=== PATIENT | female | born 1990 | race Caucasian/White ===

== ENCOUNTER 2021-08-24 18:08 | Emergency (ER) | payer OTHER, SELFPAY ==
--- NOTE | 2021-08-24 18:30 | ED.GENADULT ---
HPI - General Adult General Chief complaint: ETOH/Substance Use Stated complaint: ETOH Time Seen by Provider: 08/24/21 18:13 Source: patient Mode of arrival: ambulatory Limitations: no limitations History of Present Illness HPI narrative: 31-year-old female presents to ED for alcohol intoxication. Patient was called to the hotel room due to her having alcohol drinking binge for the past 3 days. Patient was found on the bed intoxicated. Patient sent to the ED for evaluation. Patient respond to sternal rub. Patient intoxicated. Related Data Allergies Allergy/AdvReac Type Severity Reaction Status Date / Time No Known Allergies Allergy Unverified 10/31/19 19:50 [No Known Allergies*] Review of Systems Review of Systems: Alcohol intoxication Yes all other systems are reviewed and are negative PMFSH Social History Social History Advance Directives: No Advance Directives Information Provided: No Physical Exam ED Vital Signs: Vital Signs - 24 hr 08/24/21 18:46 08/24/21 19:25 Temperature 96.7 F L Pulse Rate 80 86 Respiratory Rate 16 14 Blood Pressure 107/60 104/60 Pulse Oximetry 96 98 Oxygen Delivery Method Room Air Room Air BMI result Body Mass Index 24.8 Const Other: intoxicated [facility] Head: Yes normal to inspection, Yes No palpable skull fracture present, Yes normocephalic, Yes atraumatic and No abrasion Ears: hearing grossly normal bilaterally, external ears normal, TM's normal bilaterally, TM normal on the right, TM normal on the left, EAC's normal, mastoids normal and no periauricular adenopathy Eyes Other: equal pupils General: appearance normal, both eyes and all related structures Neck Neck: Yes normal visual inspection, Yes full ROM, Yes no lymphadenopathy, Yes trachea midline, Yes supple, No anterior neck swelling and No tender Chest Chest palpation & inspection: normal inspection of the chest and normal palpation of entire chest wall Resp Effort & Inspection: normal respiratory effort and able to speak in complete sentences Auscultation: clear to auscultation bilaterally Cardio Jugular venous distension: no JVD Heart sounds: S1 normal heart sound present and S2 normal heart sound present GI Inspection: Yes normal to inspection and No abdominal wall ecchymosis Palpation (GI): Soft to palpation, not firm, nontender, no guarding and not rigid General: No CVA tenderness and Yes no CVA tenderness Back/Spine/Pelvis Back: no CVA tenderness, No CVA tenderness, No ecchymosis and No back tenderness Skin General skin exam: no rashes or lesions noted and elasticity normal Neuro Other: alcohol on breath. Extrem General: Yes normal to inspection and Yes full ROM Psych Appearance: grossly normal, well kempt and not disheveled Course Course Course Narrative: Patient have labs drawn. Present [address] scan. No signs of head trauma. Will re-evaluate when sober Reevaluation(s) Reevaluation #1: spoke with patient's mother Sameera Gonzalez and Girlfriend Sujatha who informed me that patient just completed court mandated rehab for substance abuse. I spoke with patient and she refused to receive detox/ rehab information from myself. technology coach Myah spoke with patient and patient states she will follow-up with her rehab clinician in [facility] to continue her treatment. I spoke with care team alice Clemens who states once patient completes treatment section 35 no longer exists. Spoke with patient's mother and girlfriend and informed them that they will need to petition a new section 35 and they agree with plan. Patient alert oriented x3 and ready for discharge. Patient is not suicidal or homicidal. No need for Section 12. Girlfriend sujatha informed patient is being discharged and she states he would go to patient's home to check up on her. Time: 21:19 Medical Decision Making MDM Narrative Medical decision making narrative: alcohol/substance abuse Lab Data Result diagrams: 08/24/21 19:48 08/24/21 19:48 Labs: Lab Results 08/24/21 08/24/21 08/24/21 Range/Units 19:48 19:48 20:04 WBC 5.8 (4.8-10.8) X10*3/uL RBC 4.51 (4.20-5.50) X10*6/uL Hgb 13.8 (12.0-16.0) g/dl Hct 40.3 (37.0-47.0) % MCV 89.4 (80.0-98.0) fL MCH 30.6 (27.0-33.0) pg MCHC 34.2 (31.0-35.0) g/dl RDW 12.7 (11.0-16.0) % Plt Count 260 (160-400) X10*3/uL MPV 8.6 L (9.4-12.3) fL Immature Gran % (Auto) 0.3 (0.0-0.4) % Neut % (Auto) 87.2 H (45-73) % Lymph % (Auto) 10.2 L (20-40) % [place] % (Auto) 2.1 (2-11) % Eos % (Auto) 0.0 (0-4) % Baso % (Auto) 0.2 (0-2) % Lymph # (Auto) 0.6 L (1.2-4.9) X10*3/uL [place] # (Auto) 0.1 (0.1-1.2) X10*3/uL Eos # (Auto) 0.0 (0.0-0.4) X10*3/uL Baso # (Auto) 0.0 (0.0-0.2) X10*3/uL Abs Immat Gran (auto) 0.02 (0.00-0.03) X10*3/uL Absolute Neuts (auto) 5.1 (2.0-8.3) x10*3/uL Absolute Nucleated RBC 0.000 (0.0-0.012) X10*3/uL Nucleated RBC % (auto) 0.0 (0.0-0.2) /100WBC Sodium 141 (135-145) mmol/L Potassium 4.3 (3.3-5.1) mmol/L Chloride 102 (96-108) mmol/L Carbon Dioxide 27 (22-29) mmol/L Anion Gap 16 (12-20) BUN 7 L (9-16) mg/dL Creatinine 0.78 (0.5-1.4) mg/dL Estim Creat Clear Calc 101.6 Estimated GFR > 60 Random Glucose 100 (60-115) mg/dL Calcium 8.7 (8.4-10.2) mg/dL Magnesium 1.6 (1.6-2.6) mg/dL Total Bilirubin 0.2 (0.0-1.0) mg/dL AST 47 H (5-31) U/L ALT 27 (0-31) U/L Alkaline Phosphatase 59 (39-117) U/L Total Protein 7.5 (6.5-8.0) g/dL Albumin 4.2 (3.5-5.0) g/dL Urine Color YELLOW Urine Appearance CLEAR Urine pH 5.5 (5.0-8.0) Ur Specific [place] >= 1.030 H (1.005-1.025) Urine Protein NEG (NEG-TRACE) MG/DL Urine Glucose (UA) NEG (NEG) MG/DL Urine Ketones 5 (NEG) MG/DL Urine Blood NEG (NEG) Urine Nitrite NEG (NEG) Ur Leukocyte Esterase NEG (NEG) Urine Test (NEGATIVE) Urine Opiates Screen (Not Detect) Urine Fentanyl Screen (Not Detect) Ur Barbiturates Screen (Not Detect) Ur Phencyclidine Scrn (Not Detect) Ur Amphetamines Screen (Not Detect) U Benzodiazepines Scrn (Not Detect) Urine Cocaine Screen (Not Detect) U Marijuana (THC) Screen (Not Detect) Ethyl Alcohol 127 mg/dL 08/24/21 08/24/21 Range/Units 20:04 20:04 WBC (4.8-10.8) X10*3/uL RBC (4.20-5.50) X10*6/uL Hgb (12.0-16.0) g/dl Hct (37.0-47.0) % MCV (80.0-98.0) fL MCH (27.0-33.0) pg MCHC (31.0-35.0) g/dl RDW (11.0-16.0) % Plt Count (160-400) X10*3/uL MPV (9.4-12.3) fL Immature Gran % (Auto) (0.0-0.4) % Neut % (Auto) (45-73) % Lymph % (Auto) (20-40) % [place] % (Auto) (2-11) % Eos % (Auto) (0-4) % Baso % (Auto) (0-2) % Lymph # (Auto) (1.2-4.9) X10*3/uL [place] # (Auto) (0.1-1.2) X10*3/uL Eos # (Auto) (0.0-0.4) X10*3/uL Baso # (Auto) (0.0-0.2) X10*3/uL Abs Immat Gran (auto) (0.00-0.03) X10*3/uL Absolute Neuts (auto) (2.0-8.3) x10*3/uL Absolute Nucleated RBC (0.0-0.012) X10*3/uL Nucleated RBC % (auto) (0.0-0.2) /100WBC Sodium (135-145) mmol/L Potassium (3.3-5.1) mmol/L Chloride (96-108) mmol/L Carbon Dioxide (22-29) mmol/L Anion Gap (12-20) BUN (9-16) mg/dL Creatinine (0.5-1.4) mg/dL Estim Creat Clear Calc Estimated GFR Random Glucose (60-115) mg/dL Calcium (8.4-10.2) mg/dL Magnesium (1.6-2.6) mg/dL Total Bilirubin (0.0-1.0) mg/dL AST (5-31) U/L ALT (0-31) U/L Alkaline Phosphatase (39-117) U/L Total Protein (6.5-8.0) g/dL Albumin (3.5-5.0) g/dL Urine Color Urine Appearance Urine pH (5.0-8.0) Ur Specific [place] (1.005-1.025) Urine Protein (NEG-TRACE) MG/DL Urine Glucose (UA) (NEG) MG/DL Urine Ketones (NEG) MG/DL Urine Blood (NEG) Urine Nitrite (NEG) Ur Leukocyte Esterase (NEG) Urine Test NEGATIVE (NEGATIVE) Urine Opiates Screen Not Detected (Not Detect) Urine Fentanyl Screen Not Detected (Not Detect) Ur Barbiturates Screen Not Detected (Not Detect) Ur Phencyclidine Scrn Not Detected (Not Detect) Ur Amphetamines Screen Not Detected (Not Detect) U Benzodiazepines Scrn POSITIVE H (Not Detect) Urine Cocaine Screen Not Detected (Not Detect) U Marijuana (THC) Screen POSITIVE H (Not Detect) Ethyl Alcohol mg/dL Discharge Plan Discharge Clinical Impression: Alcohol abuse, Substance abuse Patient Disposition: Home, Self-Care Instructions: Abuse of Alcohol (ED), Polysubstance Abuse (ED) Additional Instructions: Please follow-up with the clinician Charis to restart your rehab in [facility]. Return to the ED immediately for any suicidal / homicidal ideation, auditory / visual hallucinations, any physical complaints, or any other concerning symptoms. Discharge Date/Time: 08/24/21 21:33 Print Language: German
[2021-08-24 18:46] VITALS: BP 107/60; BP 117/80; PULSE 80; PULSE 90; RESP 16; O2SAT 96; O2SAT 98; BMI 24.8
[2021-08-24 19:25] VITALS: BP 104/60; PULSE 86; RESP 14; TEMP 35.9; O2SAT 98
--- NOTE | 2021-08-24 19:41 | PC.NURSE ---
pt sleeping arrousable, labs being drawn at this time. pt has a mild nausea no vomiting. ivf infusing. skin pink warm and dry.
[2021-08-24] MEDS: 0.9 % Sodium Chloride 1,000 ML 999 ML IV ×2 (19:44)
--- NOTE | 2021-08-24 19:50 | PC.NURSE ---
pt sat at 97% on room air, pt is weak, nailbeds dusky due to pt has rynalds. pt states this is her baseline color to her fingers and nails.
[2021-08-24 19:52] LABS: MANUAL DIFF FLAG NO
[2021-08-24 19:53] LABS: Basophils Percent Auto 0.2 % (0-2); Hematocrit 40.3 % (37.0-47.0); Hemoglobin 13.8 g/dl (12.0-16.0); Imm Gran Abs Auto 0.02 X10*3/uL (0.00-0.03); Imm Gran Pct Auto 0.3 % (0.0-0.4); Lymphocytes Absolute Auto 0.6 X10*3/uL (1.2-4.9); Lymphocytes Percent Auto 10.2 % (20-40); Mean Corpuscular HGB Conc 34.2 g/dl (31.0-35.0); Mean Corpuscular Hemoglobin 30.6 pg (27.0-33.0); Mean Corpuscular Volume 89.4 fL (80.0-98.0); Mean Platelet Volume 8.6 fL (9.4-12.3); Monocytes Absolute Auto 0.1 X10*3/uL (0.1-1.2); Monocytes Percent Auto 2.1 % (2-11); Neutrophils Absolute Auto 5.1 x10*3/uL (2.0-8.3); Neutrophils Percent Auto 87.2 % (45-73); Platelet Count 260 X10*3/uL (160-400); Red Blood Count 4.51 X10*6/uL (4.20-5.50); Red Cell Distribution Width 12.7 % (11.0-16.0); White Blood Count 5.8 X10*3/uL (4.8-10.8)
[2021-08-24 20:11] LABS: Appearance Urine CLEAR; Color Urine YELLOW; Glucose Urine UA NEG (NEG); Leukocyte Esterase Urine NEG (NEG); Nitrite Urine NEG (NEG); PH 5.5 (5.0-8.0); Specific Gravity - Urine >= 1.030 (1.005-1.025); Urine Blood NEG (NEG); Urine Ketones 5 MG/DL (NEG); Urine Protein NEG (NEG-TRACE)
[2021-08-24 20:14] LABS: UPreg QC Valid YES; Urine Pregnancy NEGATIVE (NEGATIVE)
[2021-08-24 20:17] LABS: Alanine Aminotransferase 27 U/L (0-31); Albumin Level 4.2 g/dL (3.5-5.0); Alkaline Phosphatase 59 U/L (39-117); Anion Gap 16 (12-20); Aspartate Amino Transferase 47 U/L (5-31); Bilirubin Total 0.2 mg/dL (0.0-1.0); Blood Urea Nitrogen 7 mg/dL (9-16); Calcium 8.7 mg/dL (8.4-10.2); Carbon Dioxide 27 mmol/L (22-29); Chloride 102 mmol/L (96-108); Creatinine Clr Calc Pharmacy 101.6; Estimated Glomerular Filt Rate > 60; Ethanol 127 mg/dL; Glucose Random 100 mg/dL (60-115); Magnesium 1.6 mg/dL (1.6-2.6); Potassium 4.3 mmol/L (3.3-5.1); Sodium 141 mmol/L (135-145); Total Protein 7.5 g/dL (6.5-8.0)
[2021-08-24 20:23] LABS: Amphetamine Screen Urine Not Detected (Not Detect); Barbiturates, Urine Not Detected (Not Detect); Benzodiazepines Screen Urine POSITIVE (Not Detect); Cannabinoid Screen Urine POSITIVE (Not Detect); Cocaine Screen Urine Not Detected (Not Detect); Fentanyl, urine Not Detected (Not Detect); Opiate Screen Urine Not Detected (Not Detect); Phencyclidine Screen Urine Not Detected (Not Detect)
--- NOTE | 2021-08-24 20:48 | PC.NURSE ---
pt is on her cell phone calling for a ride home. pt crying and using the f word to the person on the other end.
--- NOTE | 2021-08-24 21:04 | PC.NURSE ---
pt meeting with debt recovery officer at this time. pt was crying prior while she was on the phone.
--- NOTE | 2021-08-24 21:19 | MHC.RECOVSUP ---
? Reason for consult:Recovery Support o Current location: ED22H? o Identified substance use concern: AUD? - Support ? Intervention: o Harm reduction discussion ? Additional information:?Patient consultation with JUAN DAVID Lozoya before point of entry. 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 Patient did disclose that she will section 35 herself along with her clinician from [place], [place] tomorrow and doesn't want any assistance with resources. I handed her my business card in case patient changes her mind. Patient wanted to be discharged to return to her motel room in [place].
--- NOTE | 2021-08-24 21:30 | PC.NURSE ---
pt a&o, no sob or chest pain. Care team did speak with pt regarding plan . Reviewed discharge plan with pt. pt verbalized understanding. Pt belonging returned at this charge.
--- NOTE | 2021-08-24 21:32 | PC.NURSE ---
Notified HARPER Alexis of discharge.
== END 2021-08-24 21:33 | disposition home or self-care (01) ==
PROVIDERS: Physician Assistant; Emergency Provider Internal Medicine
DX: F10.129 Alcohol abuse with intoxication, unspecified (principal); Y90.6 Blood alcohol level of 120-199 mg/100 ml; F12.90 Cannabis use, unspecified, uncomplicated; Z79.899 Other long term (current) drug therapy
CPT/HCPCS: 36415; 80053; 80307; 81003; 81025; 82077; 83735; 85025; 96360; 99284

== ENCOUNTER 2022-10-26 11:18 | Emergency (ER) | payer OTHER, SELFPAY ==
--- NOTE | ~2022-10-26 | XR_ITS ---
EXAMINATION: XR ELBOW, RIGHT CLINICAL INFORMATION: Rule out foreign body COMPARISON: None available. TECHNIQUE: AP, lateral, and oblique views of the right elbow. FINDINGS: The bones and soft tissues are normal. No fracture or joint effusion. Alignment is anatomic. Joint spaces are maintained. There is a 7 mm metallic foreign body consistent with a needle tip in the anterolateral soft tissues. XR/XR elbow RT min 3V IMPRESSION: 1. No acute fracture or subluxation. 2. Radiopaque needle fragment in the anterolateral soft tissues.
[2022-10-26 11:30] VITALS: BP 115/73; PULSE 75; RESP 19; TEMP 36.6; O2SAT 98; BMI 20.6
--- NOTE | 2022-10-26 11:31 | ECG_ITS ---
Test Reason : pain Blood Pressure : / mmHG Vent. Rate : 080 BPM Atrial Rate : 080 BPM P-R Int : 150 ms QRS Dur : 076 ms QT Int : 392 ms P-R-T Axes : 054 040 030 degrees QTc Int : 452 ms Normal sinus rhythm Normal ECG No previous ECGs available Referred By: Calvin Cardenas Electronically Signed By:MONI TEE
--- NOTE | 2022-10-26 11:34 | ED.GENADULT ---
HPI - General Adult General Chief complaint: Arrhythmia/Palpitations Stated complaint: Abnormal heart rate Time Seen by Provider: 10/26/22 14:02 Source: patient Mode of arrival: ambulatory Limitations: no limitations History of Present Illness HPI narrative: Pain history of substance abuse alcohol abuse clean for last 2 months was at the methadone clinic notice a pulse slightly irregular. Patient just had physical yesterday everything was normal. Patient denied any syncope dizziness chest pain feels slight short of breath when ambulating no leg swelling no fever no cough no chills no history of caffeine use patient also has a broken needle in right forearm for last 1 yr no skin discoloration or significant pain Related Data Previous Rx's Medication Instructions Recorded cefuroxime axetil 250 mg tablet 250 mg PO BID 7 days #14 tabs 10/26/22 Allergies Allergy/AdvReac Type Severity Reaction Status Date / Time No Known Allergies Allergy Verified 10/26/22 11:29 [No Known Allergies*] Review of Systems Review of Systems: Yes all other systems are reviewed and are negative [facility] Past Medical History Medical History Marfan's disease Social History Social History Alcohol intake: never Smoked in Last 30 Days: Yes Use of substances other than those prescribed or required for medical reasons: Yes Substance Use Type: Marijuana Advance Directives: No Advance Directives Information Provided: Yes Patient : No Physical Exam ED Vital Signs: Vital Signs - 24 hr 10/26/22 11:30 10/26/22 12:20 10/26/22 14:38 Temperature 98 F 97.9 F 97.5 F Pulse Rate 75 64 57 Respiratory Rate 19 14 14 Blood Pressure 115/73 103/70 106/66 Pulse Oximetry 98 97 99 Oxygen Delivery Method Room Air Room Air Room Air 10/26/22 15:13 10/26/22 15:14 10/26/22 15:16 Temperature Pulse Rate 53 66 68 Respiratory Rate Blood Pressure 100/60 106/70 99/67 Pulse Oximetry Oxygen Delivery Method BMI result Body Mass Index 20.6 Appearance: Alert. Oriented X3. No acute distress. Eyes: PERRLA, No Nystagmus ENT: Pharynx normal. Oral Mucosa moist Neck: Normal inspection. Neck supple. CVS: Normal heart rate and rhythm. Pulses normal sinus arrhythmia with heart rate fluctuating between 50- 75. Respiratory: No respiratory distress. Equal air entry bilateral, no wheezing/rales/rhonchi Abdomen: Soft and nontender. Bowel sounds are present, no mass palpable, no CVA tenderness Skin: Skin warm and dry. Normal skin color. Normal skin turgor. Extremities: No lower extremity edema. No calf tenderness Neuro: Oriented X 3. No motor deficit. No sensory deficit.No cerebellar signs , cranial nerves II-XII intact Course Course Course Narrative: RME- and deformity 2-year-old female presents for evaluation of ?shortness of breath and they told me at the methadone clinic that is my heart rate was skipping beats. ? She also reports that she has a needle in her right elbow which is not acute but she would like it evaluated. plan for labs, EKG. Patient is PERC negative Medications Administered Discontinued Medications Generic Name Dose Route Start Last Admin Trade Name Freq PRN Reason Stop Dose Admin Cefuroxime Axetil 250 mg 10/26/22 14:52 10/26/22 15:01 Cefuroxime Axetil 250 Mg Tablet PO 10/26/22 14:53 250 mg ONCE ONE Administration Medical Decision Making Medical Decision Making [facility] Narrative: Patient labs are stable stenciler showed sinus rhythm with PACs/sinus arrhythmia urine showed wbc's and bacteria patient does have splints and odor in the urine will prescribe Ceftin discharge patient home advised to drink plenty of fluids and avoid caffeinated drinks Lab Data [facility] Lab Attestation statement: I reviewed the patient's lab results. 10/26/22 11:56 10/26/22 11:56 Labs: Lab Results 10/26/22 10/26/22 Range/Units 11:49 11:56 WBC 6.3 (4.8-10.8) X10*3/uL RBC 5.07 (4.20-5.50) X10*6/uL Hgb 15.6 (12.0-16.0) g/dl Hct 45.0 (37.0-47.0) % MCV 88.8 (80.0-98.0) fL MCH 30.8 (27.0-33.0) pg MCHC 34.7 (31.0-35.0) g/dl RDW 12.5 (11.0-16.0) % Plt Count 201 (160-400) X10*3/uL MPV 10.6 (9.4-12.3) fL Immature Gran % (Auto) 0.3 (0.0-0.4) % Neut % (Auto) 60.8 (45-73) % Lymph % (Auto) 31.4 (20-40) % [place] % (Auto) 4.9 (2-11) % Eos % (Auto) 2.1 (0-4) % Baso % (Auto) 0.5 (0-2) % Lymph # (Auto) 2.0 (1.2-4.9) X10*3/uL [place] # (Auto) 0.3 (0.1-1.2) X10*3/uL Eos # (Auto) 0.1 (0.0-0.4) X10*3/uL Baso # (Auto) 0.0 (0.0-0.2) X10*3/uL Abs Immat Gran (auto) 0.02 (0.00-0.03) X10*3/uL Absolute Neuts (auto) 3.8 (2.0-8.3) x10*3/uL Absolute Nucleated RBC 0.000 (0.0-0.012) X10*3/uL Nucleated RBC % (auto) 0.0 (0.0-0.2) /100WBC PT 12.1 (11.1-13.3) SEC INR 1.0 (0.9-1.1) Sodium 137 (135-145) mmol/L Potassium 4.7 (3.3-5.1) mmol/L Chloride 107 (96-108) mmol/L Carbon Dioxide 24 (22-29) mmol/L Anion Gap 11 L (12-20) BUN 15 (9-16) mg/dL Creatinine 1.08 (0.5-1.4) mg/dL Estim Creat Clear Calc 83.8 Estimated GFR 59 Random Glucose 85 (60-115) mg/dL Calcium 9.3 D (8.4-10.2) mg/dL Magnesium 1.9 (1.6-2.6) mg/dL Total Bilirubin 0.3 (0.0-1.0) mg/dL AST 66 H (5-31) U/L ALT 76 H (0-31) U/L Alkaline Phosphatase 66 (39-117) U/L Total Protein 8.3 H (6.5-8.0) g/dL Albumin 4.4 (3.5-5.0) g/dL Lipase 21 (8-78) U/L TSH 0.67 (0.32-4.0) uIU/mL Urine Color Yellow Urine Appearance Clear Urine pH 5.5 (5.0-9.0) Ur Specific [place] 1.025 (1.005-1.025) Urine Protein Negative (Neg-Trace) mg/dL Urine Glucose (UA) Negative (Negative) mg/dL Urine Ketones Negative (Negative) mg/dL Urine Blood Negative (Negative) Urine Nitrite Negative (Negative) Ur Leukocyte Esterase Small (1+) H (Negative) Urine RBC 0-2 (0-2) /HPF Urine WBC 6-10 H (0-5) /HPF Ur Squamous Epith Cells 6-10 (0-2) /HPF Urine Bacteria 2+ (None Seen) Hyaline Casts 0-2 (0-2) /LPF Urine Test NEGATIVE (NEGATIVE) Independent Interpretation I performed an independent interpretation of an: EKG Interpretation: Normal sinus rhythm heart rate 80 beats per minute normal intervals normal axis no acute ST-T changes no acute ischemia Discharge Plan Discharge Clinical Impression: Sinus arrhythmia, UTI (urinary tract infection) Patient Disposition: Home, Self-Care Instructions: Urinary Tract Infection in Women (DC), Premature Atrial Contractions (ED) Additional Instructions: Your irregular heartbeats is not very uncommon, and non life-threatening drink plenty of fluids avoid caffeinated drink Take antibiotic for UTI Prescriptions: New cefuroxime axetil 250 mg tablet 250 mg PO BID 7 Days Qty: 14 0RF
[2022-10-26 12:05] LABS: MANUAL DIFF FLAG NO
[2022-10-26 12:08] LABS: UPreg QC Valid YES; Urine Pregnancy NEGATIVE (NEGATIVE)
[2022-10-26 12:09] LABS: Appearance Urine Clear; Color Urine Yellow; Glucose Urine UA Negative (Negative); Leukocyte Esterase Urine Small (1+) (Negative); Nitrite Urine Negative (Negative); PH 5.5 (5.0-9.0); Specific Gravity - Urine 1.025 (1.005-1.025); UMIC TRIGGER UACC YES; Urine Blood Negative (Negative); Urine Ketones Negative (Negative); Urine Protein Negative (Neg-Trace)
[2022-10-26 12:13] LABS: Basophils Percent Auto 0.5 % (0-2); Eosinophils Absolute Auto 0.1 X10*3/uL (0.0-0.4); Eosinophils Percent Auto 2.1 % (0-4); Hemoglobin 15.6 g/dl (12.0-16.0); Imm Gran Abs Auto 0.02 X10*3/uL (0.00-0.03); Imm Gran Pct Auto 0.3 % (0.0-0.4); Lymphocytes Percent Auto 31.4 % (20-40); Mean Corpuscular HGB Conc 34.7 g/dl (31.0-35.0); Mean Corpuscular Hemoglobin 30.8 pg (27.0-33.0); Mean Corpuscular Volume 88.8 fL (80.0-98.0); Mean Platelet Volume 10.6 fL (9.4-12.3); Monocytes Absolute Auto 0.3 X10*3/uL (0.1-1.2); Monocytes Percent Auto 4.9 % (2-11); Neutrophils Absolute Auto 3.8 x10*3/uL (2.0-8.3); Neutrophils Percent Auto 60.8 % (45-73); Platelet Count 201 X10*3/uL (160-400); Red Blood Count 5.07 X10*6/uL (4.20-5.50); Red Cell Distribution Width 12.5 % (11.0-16.0); White Blood Count 6.3 X10*3/uL (4.8-10.8)
[2022-10-26 12:14] LABS: Prothrombin Time 12.1 SEC (11.1-13.3)
[2022-10-26 12:18] LABS: Bacteria Urine 2+ (None Seen); Hyaline Casts Urine 0-2 /LPF (0-2); RBC Urine 0-2 /HPF (0-2); UACC Culture Trigger YES
[2022-10-26 12:20] VITALS: BP 103/70; PULSE 64; RESP 14; TEMP 36.6; O2SAT 97
[2022-10-26 12:34] LABS: Alanine Aminotransferase 76 U/L (0-31); Albumin Level 4.4 g/dL (3.5-5.0); Alkaline Phosphatase 66 U/L (39-117); Anion Gap 11 (12-20); Aspartate Amino Transferase 66 U/L (5-31); Bilirubin Total 0.3 mg/dL (0.0-1.0); Blood Urea Nitrogen 15 mg/dL (9-16); Calcium 9.3 mg/dL (8.4-10.2); Carbon Dioxide 24 mmol/L (22-29); Chloride 107 mmol/L (96-108); Creatinine Clr Calc Pharmacy 83.8; Estimated Glomerular Filt Rate 59; Glucose Random 85 mg/dL (60-115); Lipase 21 U/L (8-78); Magnesium 1.9 mg/dL (1.6-2.6); Potassium 4.7 mmol/L (3.3-5.1); Sodium 137 mmol/L (135-145); Total Protein 8.3 g/dL (6.5-8.0)
--- NOTE | 2022-10-26 12:35 | PC.NURSE ---
a&ox3, vss, nsr on the monitoring analyst. pt comes in today d/t increased palpitations/non-radiating chest pain/anxiety/SOB. heart sounds regular and wnl. lung sounds clear throughout. pt has hx of asthma - states she uses albuterol as needed. has not used today. pt displays no WOB vaishali. pt able to speak in full, clear sentences w/o difficulty. pt states that she was at methadone clinic today (takes 130mg po daily from [facility] in [place]) where she was having SOB and an irregular heart beat. staff members at methadone clinic advised pt to come be seen today. pt currently in no sign of distress. resting comfortably watching tv. respirations even and unlabored. call laguerre placed within reach.
[2022-10-26 12:49] LABS: TSH reflex Free T4 0.67 uIU/mL (0.32-4.0)
[2022-10-26 14:38] VITALS: BP 106/66; PULSE 57; RESP 14; TEMP 36.4; O2SAT 99
[2022-10-26 15:13] VITALS: BP 100/60; PULSE 53
[2022-10-26 15:14] VITALS: BP 106/70; PULSE 66
[2022-10-26 15:16] VITALS: BP 99/67; PULSE 68
--- NOTE | 2022-10-26 15:21 | PC.NURSE ---
pt a&ox3, vss, nsr on the artificial fly tier. pt verbalizing chest pain/tightness decreased. pt states that the pain is intermittent and does not radiate anywhere at this time. stating that she feels much better compared to when she arrived to the ED. pt resting comfortably in no apparent distress. respirations even and unlabored. friend bedside for support. call laguerre placed within reach.
== END 2022-10-26 15:43 | disposition home or self-care (01) ==
PROVIDERS: Physician Assistant; Emergency Provider Internal Medicine; PCP Pediatrics
DX: I49.9 Cardiac arrhythmia, unspecified (principal); N39.0 Urinary tract infection, site not specified; R00.2 Palpitations; M25.521 Pain in right elbow; Z79.899 Other long term (current) drug therapy
CPT/HCPCS: 36415; 73080; 80053; 81001; 81025; 83690; 83735; 84443; 85025; 85610; 87086; 93005; 99283; 99285

== ENCOUNTER 2023-01-09 14:23 | Emergency (ER) | payer OTHER, SELFPAY ==
--- NOTE | ~2023-01-09 | XR_ITS ---
EXAMINATION: XR CHEST CLINICAL INFORMATION: Hemoptysis, shortness of breath. COMPARISON: None available. TECHNIQUE: 2 views of the chest were obtained. FINDINGS: Normal appearance of the cardiomediastinal silhouette. No focal airspace infiltrates, pleural effusion or pneumothorax. No evidence of pulmonary edema. No acute osseous findings. Visualized upper abdomen is within normal limits. XR/XR chest 2V IMPRESSION: No acute cardiopulmonary findings.
--- NOTE | 2023-01-09 14:37 | ED_ITS ---
HPI - SOB/Dyspnea General Chief Complaint: Upper Respiratory Symptoms Stated Complaint: SOB/Lump on neck/Pain when coughing Time Seen by Provider: 01/09/23 16:27 Source: patient Mode of arrival: ambulatory Limitations: no limitations History of Present Illness HPI Narrative: 32-year-old female history of Marfan syndrome, asthma presenting with cough, shortness of breath, blood tinged sputum for the past 4 days status post smoking marijuana/vaping, patient reports the vape went through the was and, and then she took hit, it burned after doing that, she noted some blood in her sputum/blood-tinged sputum, it has since resolved. No chest pain, fevers, chills, nausea, vomiting, abdominal pain, headache, vision changes, dizziness, weakness, changes in voice, drooling. No history of DVT or PE. Not on thinners Related Data Previous Rx's Medication Instructions Recorded cefuroxime axetil 250 mg tablet 250 mg PO BID 7 days #14 tabs 10/26/22 Allergies Allergy/AdvReac Type Severity Reaction Status Date / Time No Known Allergies Allergy Verified 10/26/22 11:29 [No Known Allergies*] Review of Systems 2 Review of Systems: Constitutional : No Weight loss, No Fever, No Chills, No Fatigue, No Malaise ENT/Mouth : No sore throat, No Rhinorrhea Eyes: No Eye Pain, No Swelling, No Redness Cardiovascular : No Chest Pain, No SOB, No Dyspnea on Exertion, No Orthopnea, No Edema, No Palpitations Respiratory : + Cough, + Sputum, No Wheezing Gastrointestinal : No Nausea, No Vomiting, No Diarrhea, No Constipation, No abdominal Pain, No Hematochezia, No Melena Genitourinary : No Dysuria, No Urinary Frequency, No Hematuria, Musculoskeletal : No joint pain, No Myalgias, No Joint Swelling Skin : No Skin Lesions, No rash Neuro : No Weakness, No Numbness, No Dizziness, No Headache Psych : No Anxiety/Panic, No Depression All other systems reviewed and are negative Yes all other systems are reviewed and are negative [facility] Past Medical History Attestation statement: The following information was validated with the patient. Source: old records reviewed and nursing notes reviewed Medical History Marfan's disease Social History Alcohol intake: never Substance Use Type: Marijuana Advance Directives: No Advance Directives Information Provided: No Physical Exam 2 Vital Signs: Vital Signs: Last Vital Signs Temp 98.9 F 01/09/23 16:19 Pulse 77 01/09/23 16:19 Resp 19 01/09/23 16:19 BP 116/65 01/09/23 16:19 Pulse Ox 98 01/09/23 16:19 O2 Del Method Room Air 01/09/23 16:19 BMI result Body Mass Index 20.8 vss Appearance: Alert.? Oriented X3.? No acute distress.? Head: Normocephalic, atraumatic, no step-offs or deformities Eyes: Pupils equal, round and reactive to light.? ENT: Pharynx normal.? Airway/posterior pharynx without edema, erythema, no notable hernández. Patient is speaking in full sentences controlling secretions well. Neck: Normal inspection.? Neck supple.? CVS: Normal heart rate and rhythm.? Pulses normal.? Respiratory: No respiratory distress.? Breath sounds normal.? Abdomen: Soft and nontender.? Skin: Skin warm and dry.? Normal skin color.? Normal skin turgor.? Extremities: No lower extremity edema.? No calf ttp. 5/5 strength to bilateral upper and lower extremities Neuro: Oriented X 3.? No motor deficit.? No sensory deficit. CN 2-12 intact Course Course Course Narrative: This is a rapid medical exam. Deferred additional HPI, ROS, PE to primary provider. 32 yo female with history of asthma, marfans syndrome here with complaints of cough, hemotyosis, shortness of breath x 2 days This began after vaping/smoking weed. Will obtain EKG, CXR, labs, viral testing VSS Reevaluation(s) Reevaluation #1: Patient's CBC within normal limits. Chemistry no acute findings requiring intervention. Transaminases chronically elevated no acute findings. Troponin negative, EKG nonischemic. History and physical exam not consistent with pulmonary embolism, D-dimer pending. Influenza, COVID RSV negative. Chest x- ray with no acute cardiopulmonary findings. When I went to go discuss discharge with patient she tells me that she has a large lump to the left side of her mandible /underneath it has been present for 3 years she thinks it has been growing however has not been seen for this before. Explained her she may need a biopsy of this as it has been present for so long and is growing in size. It is mobile, nontender. D-dimer pending then patient to be discharged Time: 17:17 Reevaluation #2: Negative D-dimer. Educated patient on diagnosis and treatment plan, answered all question, patient verbalizes understanding. At this time patient will be discharged home, advised to return with new or worsening symptoms. Educated on worrisome signs and symptoms and when to return. At this time I feel comfortable discharge home. Time: 17:59 Medical Decision Making Medical Decision Making [facility] Narrative: 1700 32-year-old female presents with an episode of blood tinged sputum after smoking from a vape that went through the wash. Still coughing x4 days however hemoptysis has subsided Physical exam benign. Patent airway, no edema. Speaking in full sentences controlling secretions well. Breath sounds clear. Vital signs stable. History and physical exam concerning for possible inhalation burn versus bronchiolitis versus bronchitis versus viral illness versus smoker's cough. Unlikely pulmonary embolism threat to airway, severe inhalation burn, edema to the airway, respiratory distress. [facility] Plan at this time labs, imaging, viral test. Differential Diagnosis Differential Diagnoses: The differential diagnosis associated with the presentation includes History and physical exam concerning for possible inhalation burn versus bronchiolitis versus bronchitis versus viral illness versus smoker's cough. Unlikely pulmonary embolism threat to airway, severe inhalation burn, edema to the airway, respiratory distress. [facility] Admission/Observation Consideration of admission/observation: Escalation of care including admission/observation considered Unlikely Lab Data [facility] Lab Attestation statement: I reviewed the patient's lab results. 01/09/23 15:06 01/09/23 15:06 Labs: Lab Results 01/09/23 Range/Units 15:06 WBC 4.4 L (4.8-10.8) X10*3/uL RBC 4.69 (4.20-5.50) X10*6/uL Hgb 14.3 (12.0-16.0) g/dl Hct 41.0 (37.0-47.0) % MCV 87.4 (80.0-98.0) fL MCH 30.5 (27.0-33.0) pg MCHC 34.9 (31.0-35.0) g/dl RDW 12.2 (11.0-16.0) % Plt Count 197 (160-400) X10*3/uL MPV 9.5 (9.4-12.3) fL Immature Gran % (Auto) 0.2 (0.0-0.4) % Neut % (Auto) 58.4 (45-73) % Lymph % (Auto) 35.2 (20-40) % [place] % (Auto) 4.3 (2-11) % Eos % (Auto) 1.4 (0-4) % Baso % (Auto) 0.5 (0-2) % Lymph # (Auto) 1.5 (1.2-4.9) X10*3/uL [place] # (Auto) 0.2 (0.1-1.2) X10*3/uL Eos # (Auto) 0.1 (0.0-0.4) X10*3/uL Baso # (Auto) 0.0 (0.0-0.2) X10*3/uL Abs Immat Gran (auto) 0.01 (0.00-0.03) X10*3/uL Absolute Neuts (auto) 2.6 (2.0-8.3) x10*3/uL Absolute Nucleated RBC 0.000 (0.0-0.012) X10*3/uL Nucleated RBC % (auto) 0.0 (0.0-0.2) /100WBC Smear Tech's Comments VERIFIED PT 12.2 (11.1-13.3) SEC INR 1.0 (0.9-1.1) D-Dimer High Sensitivty < 150 NG/ML Sodium 139 (135-145) mmol/L Potassium 4.1 (3.3-5.1) mmol/L Chloride 104 (96-108) mmol/L Carbon Dioxide 27 (22-29) mmol/L Anion Gap 12 (12-20) BUN 12 (9-16) mg/dL Creatinine 0.93 (0.5-1.4) mg/dL Estim Creat Clear Calc 95.2 Estimated GFR > 60 Random Glucose 83 (60-115) mg/dL Calcium 9.0 (8.4-10.2) mg/dL Total Bilirubin 0.5 (0.0-1.0) mg/dL Direct Bilirubin 0.2 (0.0-0.5) mg/dL AST 46 H (5-31) U/L ALT 46 H (0-31) U/L Alkaline Phosphatase 53 (39-117) U/L Troponin I High Sens < 2.7 (<3.5-17.0) ng/L Total Protein 7.9 (6.5-8.0) g/dL Albumin 4.1 (3.5-5.0) g/dL Influenza Type A (PCR) NEGATIVE (Negative) Influenza Type B (PCR) NEGATIVE (Negative) RSV RNA Qual (PCR) NEGATIVE (Negative) SARS-CoV-2 RNA (RT-PCR) NEGATIVE (Negative) Independent Interpretation I performed an independent interpretation of an: Plain X-Ray (XR/XR chest 2V IMPRESSION: No acute cardiopulmonary findings. ) Radiology Impression Discussion of test interpretation with radiology: I have reviewed the radiologist's reading. Chronic Conditions Patient?s care impacted by: Other (Current daily smoker) Critical Care Time Critical Care Time Critical Care Time: No Discharge Plan Discharge Clinical Impression: Cough with hemoptysis, Smoker, Lump on face Patient Disposition: Home, Self-Care Instructions: Hemoptysis (ED) Additional Instructions: Take your medications as prescribed. If you were prescribed antibiotics today, it is important that you take your medication to their entirety, do not skip any doses, do not finish them early. Follow-up with your primary care provider this week. Return to the emergency department with new or worsening symptoms. Such as fevers, chills, chest pain, shortness of breath, nausea, vomiting, dizziness, headache, vision changes, lethargy In case of emergency call 911 The large lump to the left side of your mandible should be evaluated by her primary care provider, they may need to obtain a biopsy of this in you may need to be seen by specialist. To rule out malignancy/cancer Prescriptions: No Action cefuroxime axetil 250 mg tablet 250 mg PO BID 7 Days Qty: 14 0RF Referrals: Feliciano Delgado MD [Primary Care Provider] - 2 days Stand Alone Forms: Work/School Release
[2023-01-09 14:41] VITALS: BP 132/80; PULSE 102; RESP 16; TEMP 37.3; O2SAT 96; BMI 20.8
--- NOTE | 2023-01-09 14:43 | ECG_ITS ---
Test Reason : CP/SOB/HEMOPTYSIS Blood Pressure : / mmHG Vent. Rate : 082 BPM Atrial Rate : 082 BPM P-R Int : 148 ms QRS Dur : 076 ms QT Int : 390 ms P-R-T Axes : 060 049 047 degrees QTc Int : 455 ms Normal sinus rhythm Possible Left atrial enlargement RSR' or QR pattern in V1 suggests right ventricular conduction delay Abnormal ECG When compared with ECG of 26-OCT-2022 12:04, No significant change was found Referred By: Kathrin Capone Electronically Signed By:JOHANNE TAPIA MD
[2023-01-09 15:19] LABS: Prothrombin Time 12.2 SEC (11.1-13.3)
[2023-01-09 15:21] LABS: Basophils Percent Auto 0.5 % (0-2); Eosinophils Absolute Auto 0.1 X10*3/uL (0.0-0.4); Eosinophils Percent Auto 1.4 % (0-4); Hemoglobin 14.3 g/dl (12.0-16.0); Imm Gran Abs Auto 0.01 X10*3/uL (0.00-0.03); Imm Gran Pct Auto 0.2 % (0.0-0.4); Lymphocytes Absolute Auto 1.5 X10*3/uL (1.2-4.9); Lymphocytes Percent Auto 35.2 % (20-40); MANUAL DIFF FLAG SCAN; Mean Corpuscular HGB Conc 34.9 g/dl (31.0-35.0); Mean Corpuscular Hemoglobin 30.5 pg (27.0-33.0); Mean Corpuscular Volume 87.4 fL (80.0-98.0); Mean Platelet Volume 9.5 fL (9.4-12.3); Monocytes Absolute Auto 0.2 X10*3/uL (0.1-1.2); Monocytes Percent Auto 4.3 % (2-11); Neutrophils Absolute Auto 2.6 x10*3/uL (2.0-8.3); Neutrophils Percent Auto 58.4 % (45-73); Platelet Count 197 X10*3/uL (160-400); Red Blood Count 4.69 X10*6/uL (4.20-5.50); Red Cell Distribution Width 12.2 % (11.0-16.0); SCAN SMEAR FLAG 1; White Blood Count 4.4 X10*3/uL (4.8-10.8)
[2023-01-09 15:28] LABS: Alanine Aminotransferase 46 U/L (0-31); Albumin Level 4.1 g/dL (3.5-5.0); Alkaline Phosphatase 53 U/L (39-117); Anion Gap 12 (12-20); Aspartate Amino Transferase 46 U/L (5-31); Bilirubin Direct 0.2 mg/dL (0.0-0.5); Bilirubin Total 0.5 mg/dL (0.0-1.0); Blood Urea Nitrogen 12 mg/dL (9-16); Carbon Dioxide 27 mmol/L (22-29); Chloride 104 mmol/L (96-108); Creatinine Clr Calc Pharmacy 95.2; Estimated Glomerular Filt Rate > 60; Glucose Random 83 mg/dL (60-115); Potassium 4.1 mmol/L (3.3-5.1); Sodium 139 mmol/L (135-145); Total Protein 7.9 g/dL (6.5-8.0)
[2023-01-09 15:45] LABS: Troponin-I High Sensitivity < 2.7 ng/L (<3.5-17.0)
[2023-01-09 15:54] LABS: Influenza A PCR NEGATIVE (Negative); Influenza B PCR NEGATIVE (Negative); Resp Syncy Virus RNA Qual PCR NEGATIVE (Negative); SARS COV2 PCR INHOUSE NEGATIVE (Negative)
[2023-01-09 16:19] VITALS: BP 116/65; PULSE 77; RESP 19; TEMP 37.2; O2SAT 98
[2023-01-09 17:48] LABS: SLIDE REVIEW VERIFIED
[2023-01-09 17:55] LABS: D Dimer High Sensitivity < 150 NG/ML
== END 2023-01-09 18:06 | disposition home or self-care (01) ==
PROVIDERS: Nurse Practitioner Family; Physician Assistant; Emergency Provider Emergency Medicine; PCP Pediatrics
DX: R05.8 Other specified cough (principal); R04.2 Hemoptysis; F17.290 Nicotine dependence, other tobacco product, uncomplicated; R22.0 Localized swelling, mass and lump, head; R06.02 Shortness of breath; F12.90 Cannabis use, unspecified, uncomplicated; Q87.40 Marfan syndrome, unspecified; Z20.822 Contact with and (suspected) exposure to COVID-19; Z20.828 Contact with and (suspected) exposure to other viral communicable diseases
CPT/HCPCS: 0241U; 36415; 71046; 80048; 80076; 84484; 85025; 85379; 85610; 93005; 99283

== ENCOUNTER 2024-02-11 10:16 | Emergency (ER) | payer OTHER, SELFPAY ==
--- NOTE | ~2024-02-11 | CT_ITS ---
CLINICAL HISTORY: Persistent vomiting mid abdominal pain CT abdomen and pelvis without contrast Comparison: None Findings: No nephrolithiasis or hydronephrosis. No bladder stone. No consolidation at the lung bases. Unremarkable gallbladder. Retroverted uterus. The other solid organs are normal. No bowel wall thickening or dilation. A normal appendix is identified. No aneurysm. Trace calcified atherosclerotic disease. No lymphadenopathy. No ascites. No acute fracture. Impression: No acute findings. This document has been electronically signed by: Valerie Valdivia MD on 02/11/2024 13:04:35
[2024-02-11 10:34] VITALS: BP 98/53; BP 99/59; PULSE 81; RESP 22; TEMP 36.5; O2SAT 100; BMI 20.4
[2024-02-11 10:38] VITALS: BP 98/53; PULSE 81; RESP 22; TEMP 36.5; O2SAT 100
--- NOTE | 2024-02-11 10:45 | PC.NURSE ---
Pt comes to ED today via EMS for complaints of n/v, and body aches x2 days. Pt reports unable to keep PO intake down, including her Methadone--states last full dose taken was yesterday; on 130mg. A&Ox3, VSS, afebrile. Repetitive vomiting observed--contents is bile. Skin is warm and dry Breaths and speech are unlabored. Pt is restless and unable to get comfortable. 20g to RAC--Pt tolerated well.
--- NOTE | 2024-02-11 11:00 | ED.NAVMDI ---
HPI - Nausea/Vomiting/Diarrhea General Chief complaint: Nausea/Vomiting/Diarrhea Stated complaint: N/V,BODYACHES,DIZZY X2D PER EMS Time Seen by Provider: 02/11/24 10:49 Source: patient and EMS Mode of arrival: EMS Limitations: no limitations History of Present Illness ED Provider: DR. Camargo HPI Narrative: 33-year-old female came in for evaluation of persistent vomiting for 2 days, patient woke up 2 days ago with vomiting, no exposure to a sick contacts or bad food, can not keep any food down, patient admitted to smoking marijuana daily had similar episode in the past. Complaining of mid abdominal. Passing gas normally, no history of intra-abdominal surgery. Unable to take her oral methadone because of persistent vomiting. Related Data Previous Rx's ?Medication ?Instructions ?Recorded cefuroxime axetil 250 mg tablet 250 mg PO BID 7 days #14 tabs 10/26/22 Allergies Allergy/AdvReac Type Severity Reaction Status Date / Time No Known Allergies Allergy Verified 02/11/24 10:36 [No Known Allergies*] Review of Systems Review of Systems: All other systems are reviewed and are negative Constitutional: Reports as per HPI and Reports no additional constitutional complaints Eyes: Reports as per HPI and Reports no additional eye complaints Reports system reviewed and no additional complaints, except as documented Cardiovascular: Reports as per HPI and Reports no additional cardiovascular complaints Respiratory: Reports as per HPI and Reports no additional respiratory complaints Gastrointestinal: Reports as per HPI and Reports no additional gastrointestinal complaints Genitourinary: Reports no additional female genitourinary complaints Musculoskeletal: Reports no additional musculoskeletal complaints Skin/Breast: Reports system reviewed and no additional complaints, except as docu Psychiatric: Reports no additional psychiatric complaints Endocrine: Reports no additional endocrine complaints Hematologic/Lymphatic: Reports no additional hematologic/lymphatic complaints Allergic/Immunologic: Reports no additional allergic/immunologic complaints Reports system reviewed and no additional complaints, except as documented and Reports Abnormal speech present [facility] Past Medical History Medical History Marfan's disease Social History Social History Alcohol intake: never Smoked in Last 30 Days: Yes Use of substances other than those prescribed or required for medical reasons: Yes Substance Use Type: Marijuana Substance Use Frequency: Daily Advance Directives: No Advance Directives Information Provided: No Do you have a plan to hurt others: No Plan Patient : No Physical Exam Vital Signs: Vital Signs: Last Vital Signs Temp 97.7 F 02/11/24 10:38 Pulse 81 02/11/24 10:38 Resp 22 H 02/11/24 10:38 BP 98/53 L 02/11/24 10:38 Pulse Ox 100 02/11/24 10:38 O2 Del Method Room Air 02/11/24 10:38 BMI result Body Mass Index 20.4 Vital signs have been reviewed and appear to be correct. Blood pressure elevated. Heart rate normal. Respiratory rate normal. Temperature normal. Oxygen saturation normal. Appearance: Alert. Oriented X3. No acute distress. Head: Normal external exam. Normocephalic. Atraumatic. No [place] signs noted. No raccoon eyes noted Eyes: PERRLA. EOMI. Conjunctiva and sclera normal. Eyelids normal. ENT: TM's Normal. Pharynx normal. Uvula midline. Moist mucous membranes. No trismus noted. No drooling noted. No muffled voice noted. Neck: Normal inspection. Neck supple. FROM. No adenopathy. Thyroid Normal. No meningeal signs. No neck mass noted. CVS: Normal heart rate and rhythm. Heart sound normal. No murmurs noted. Pulses normal throughout. Respiratory: No respiratory distress. Painless inspiration. Breath sounds normal. No wheezes/rales/rhonchi noted. Chest nontender. No accessory muscle usage noted or decreased air movement noted. Abdomen: Soft and nontender. Bowel sounds normal in all 4 quadrants. No distention noted. No organomegaly noted. No visible injury noted. Back: No CVA tenderness. Full range of motion noted. Skin: Skin warm and dry. Normal skin color. Normal skin turgor. No rashes/lesions/lacerations noted. Extremities: No lower extremity edema. Extremities exhibit normal range of motion. Extremities nontender. Neuro: Oriented X 3. Cranial nerve exam: II-XII are grossly intact No motor deficit. No sensory deficit. Reflexes normal. Course Reevaluation(s) Reevaluation #1: 33-year-old female came in with persistent vomiting and dehydration, patient received IV hydration, Zofran, Pepcid, Maalox patient now feels better able to tolerate p.o. intake. CT abdomen pelvis reveals no acute intra-abdominal pathology. Patient now feels better able to tolerate p.o. intake. Elevated LFTs patient was instructed to follow-up with PCP for further evaluation. Time: 14:15 Medications Administered Discontinued Medications Generic Name Dose Route Start Last Admin Trade Name Freq PRN Reason Stop Dose Admin Al Hydroxide/Mg Hydroxide 30 ml 02/11/24 10:57 02/11/24 11:35 Magnesium Hydrox/Alum Hydrox 30 Ml Oral.Susp PO 02/11/24 10:58 30 ml ONCE ONE Administration Famotidine 20 mg 02/11/24 10:57 02/11/24 11:09 Famotidine/Pf 20 Mg/2 Ml Vial IVPUSH 02/11/24 10:58 20 mg ONCE ONE Administration Sodium Chloride 1,000 mls @ 999 mls/hr 02/11/24 10:57 02/11/24 13:30 Ns IV 02/11/24 11:57 Infused .Q1H1M ONE Infusion Ketorolac Tromethamine 30 mg 02/11/24 11:44 02/11/24 11:47 Ketorolac Tromethamine 30 Mg/Ml Vial IVPUSH 02/11/24 11:45 30 mg ONCE ONE Administration Ondansetron HCl 4 mg 02/11/24 10:57 02/11/24 11:08 Ondansetron Hcl 4 Mg/2 Ml Vial IVPUSH 02/11/24 10:58 4 mg ONCE ONE Administration Medical Decision Making Differential Diagnosis Differential Diagnoses: The differential diagnosis associated with the presentation includes (Intractable vomiting, acute colitis, gastroenteritis, acute appendicitis, severe anemia, electrolyte derangement, UTI, .) Admission/Observation Consideration of admission/observation: Escalation of care including admission/observation considered Lab Data [facility] Lab Attestation statement: I reviewed the patient's lab results. 02/11/24 11:13 02/11/24 11:13 Labs: Lab Results 02/11/24 02/11/24 Range/Units 11:13 12:22 WBC 11.6 H (4.8-10.8) X10*3/uL RBC 5.07 (4.20-5.50) X10*6/uL Hgb 15.9 (12.0-16.0) g/dl Hct 43.8 (37.0-47.0) % MCV 86.4 (80.0-98.0) fL MCH 31.4 (27.0-33.0) pg MCHC 36.3 H (31.0-35.0) g/dl RDW 11.9 (11.0-16.0) % Plt Count 229 (160-400) X10*3/uL MPV 9.2 L (9.4-12.3) fL Immature Gran % (Auto) 0.3 (0.0-0.4) % Neut % (Auto) 92.8 H (45-73) % Lymph % (Auto) 4.3 L (20-40) % [place] % (Auto) 1.9 L (2-11) % Eos % (Auto) 0.5 (0-4) % Baso % (Auto) 0.2 (0-2) % Lymph # (Auto) 0.5 L (1.2-4.9) X10*3/uL [place] # (Auto) 0.2 (0.1-1.2) X10*3/uL Eos # (Auto) 0.1 (0.0-0.4) X10*3/uL Baso # (Auto) 0.0 (0.0-0.2) X10*3/uL Abs Immat Gran (auto) 0.04 H (0.00-0.03) X10*3/uL Absolute Neuts (auto) 10.7 H (2.0-8.3) x10*3/uL Absolute Nucleated RBC 0.000 (0.0-0.012) X10*3/uL Nucleated RBC % (auto) 0.0 (0.0-0.2) /100WBC Smear Tech's Comments VERIFIED Sodium 138 (135-145) mmol/L Potassium 4.2 (3.3-5.1) mmol/L Chloride 105 (96-108) mmol/L Carbon Dioxide 24 (22-29) mmol/L Anion Gap 13 (12-20) BUN 16 (9-16) mg/dL Creatinine 0.86 (0.5-1.4) mg/dL Estim Creat Clear Calc 103.2 Estimated GFR > 60 Random Glucose 131 H (60-115) mg/dL Calcium 8.8 (8.4-10.2) mg/dL Total Bilirubin 1.2 H (0.0-1.0) mg/dL Direct Bilirubin 0.4 (0.0-0.5) mg/dL AST 142 H (5-31) U/L ALT 223 H (0-31) U/L Alkaline Phosphatase 69 (39-117) U/L Total Protein 7.9 (6.5-8.0) g/dL Albumin 4.2 (3.5-5.0) g/dL Lipase 44 (8-78) U/L Beta HCG, Quant < 2 mIU/mL Urine Color Dark Yellow Urine Appearance Cloudy Urine pH >= 9.0 (5.0-9.0) Ur Specific [place] >= 1.030 H (1.005-1.025) Urine Protein 30 (1+) H (Neg-Trace) mg/dL Urine Glucose (UA) Negative (Negative) mg/dL Urine Ketones 15 (Negative) mg/dL Urine Blood Negative (Negative) Urine Nitrite Negative (Negative) Ur Leukocyte Esterase Trace H (Negative) Urine RBC 0-2 (0-2) /HPF Urine WBC 0-5 (0-5) /HPF Ur Squamous Epith Cells 0-2 (0-2) /HPF Urine Bacteria None Seen (None Seen) Hyaline Casts 0-2 (0-2) /LPF Independent Interpretation I performed an independent interpretation of an: CT Scan (Abdomen pelvis: No acute pathology.) Radiology Impression Discussion of test interpretation with radiology: I have reviewed the radiologist's reading. Discharge Plan Discharge Clinical Impression: Vomiting, Dehydration, Transaminitis Patient Disposition: Home, Self-Care Instructions: Dehydration (ED) Additional Instructions: Follow-up with your primary doctor for elevated liver function enzymes Prescriptions: No Action cefuroxime axetil 250 mg tablet 250 mg PO BID 7 Days Qty: 14 0RF Referrals: Carmen Quiles NP [Primary Care Provider] - Print Language: Mauritanian
[2024-02-11] MEDS: ondansetron HCL 4 MG/2 ML VIAL IVPUSH (11:08)
[2024-02-11] MEDS: Famotidine/PF 20 MG/2 ML VIAL IVPUSH (11:09)
[2024-02-11] MEDS: 0.9 % Sodium Chloride 1,000 ML 999 ML IV (11:10)
[2024-02-11 11:20] LABS: Basophils Percent Auto 0.2 % (0-2); Eosinophils Absolute Auto 0.1 X10*3/uL (0.0-0.4); Eosinophils Percent Auto 0.5 % (0-4); Hematocrit 43.8 % (37.0-47.0); Hemoglobin 15.9 g/dl (12.0-16.0); Imm Gran Abs Auto 0.04 X10*3/uL (0.00-0.03); Imm Gran Pct Auto 0.3 % (0.0-0.4); Lymphocytes Absolute Auto 0.5 X10*3/uL (1.2-4.9); Lymphocytes Percent Auto 4.3 % (20-40); MANUAL DIFF FLAG SCAN; Mean Corpuscular HGB Conc 36.3 g/dl (31.0-35.0); Mean Corpuscular Hemoglobin 31.4 pg (27.0-33.0); Mean Corpuscular Volume 86.4 fL (80.0-98.0); Mean Platelet Volume 9.2 fL (9.4-12.3); Monocytes Absolute Auto 0.2 X10*3/uL (0.1-1.2); Monocytes Percent Auto 1.9 % (2-11); Neutrophils Absolute Auto 10.7 x10*3/uL (2.0-8.3); Neutrophils Percent Auto 92.8 % (45-73); Platelet Count 229 X10*3/uL (160-400); Red Blood Count 5.07 X10*6/uL (4.20-5.50); Red Cell Distribution Width 11.9 % (11.0-16.0); SCAN SMEAR FLAG 1; White Blood Count 11.6 X10*3/uL (4.8-10.8)
[2024-02-11] MEDS: Magnesium Hydrox/Alum Hydrox 30 ML ORAL.SUSP PO (11:35)
[2024-02-11 11:37] LABS: SLIDE REVIEW VERIFIED
[2024-02-11 11:42] LABS: Alanine Aminotransferase 223 U/L (0-31); Albumin Level 4.2 g/dL (3.5-5.0); Alkaline Phosphatase 69 U/L (39-117); Anion Gap 13 (12-20); Aspartate Amino Transferase 142 U/L (5-31); Bilirubin Direct 0.4 mg/dL (0.0-0.5); Bilirubin Total 1.2 mg/dL (0.0-1.0); Blood Urea Nitrogen 16 mg/dL (9-16); Calcium 8.8 mg/dL (8.4-10.2); Carbon Dioxide 24 mmol/L (22-29); Chloride 105 mmol/L (96-108); Creatinine Clr Calc Pharmacy 103.2; Estimated Glomerular Filt Rate > 60; Glucose Random 131 mg/dL (60-115); Lipase 44 U/L (8-78); Potassium 4.2 mmol/L (3.3-5.1); Sodium 138 mmol/L (135-145); Total Protein 7.9 g/dL (6.5-8.0)
[2024-02-11 11:46] LABS: HCG Quantitative < 2 mIU/mL
[2024-02-11] MEDS: Ketorolac Tromethamine 30 MG/ML VIAL IVPUSH (11:47)
[2024-02-11 12:29] LABS: Appearance Urine Cloudy; Color Urine Dark Yellow; Glucose Urine UA Negative (Negative); Leukocyte Esterase Urine Trace (Negative); Nitrite Urine Negative (Negative); PH >= 9.0 (5.0-9.0); Specific Gravity - Urine >= 1.030 (1.005-1.025); UMIC TRIGGER UACC YES; Urine Blood Negative (Negative); Urine Ketones 15 mg/dL (Negative); Urine Protein 30 (1+) mg/dL (Neg-Trace)
[2024-02-11 12:39] LABS: Bacteria Urine None Seen (None Seen); Hyaline Casts Urine 0-2 /LPF (0-2); RBC Urine 0-2 /HPF (0-2); Squamous Epithelial Cell Urine 0-2 /HPF (0-2); WBC Urine 0-5 /HPF (0-5)
--- NOTE | 2024-02-11 14:07 | PC.NURSE ---
ANITA elizondo requested by provider. Pt provided with crackers and water.
[2024-02-11 15:55] VITALS: BP 96/60; PULSE 77; RESP 16; TEMP 36.4; O2SAT 99
[2024-02-11 16:04] VITALS: BP 96/60; PULSE 77; RESP 16; TEMP 36.4; O2SAT 99
== END 2024-02-11 16:05 | disposition home or self-care (01) ==
PROVIDERS: Emergency Provider Emergency Medicine; PCP Registered Nurse
DX: E86.0 Dehydration (principal); R11.2 Nausea with vomiting, unspecified; M79.10 Myalgia, unspecified site; R42 Dizziness and giddiness; R74.01 Elevation of levels of liver transaminase levels; Z79.899 Other long term (current) drug therapy
CPT/HCPCS: 36415; 74176; 80048; 80076; 81001; 83690; 84702; 85025; 96361; 96374; 96375; 99284; 99285; J1885; J2405

== ENCOUNTER → 2024-02-11 10:59 | Outpatient (BNV) | payer OTHER, SELFPAY | PROVIDERS: Emergency Provider Emergency Medicine; PCP Registered Nurse; Visit Provider Radiology Diagnostic Radiology | DX: R11.10 Vomiting, unspecified (principal); R10.9 Unspecified abdominal pain | CPT/HCPCS: 74176 ==

== ENCOUNTER 2024-08-29 13:15 | Emergency (ER) | payer OTHER, SELFPAY ==
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
--- NOTE | ~2024-08-29 | CT_ITS ---
EXAMINATION: CT CHEST WITH CONTRAST CLINICAL INFORMATION: The right chest and back pain DLP: 180 mGY*cm COMPARISON: None available. TECHNIQUE: Multidetector volumetric CT imaging of the chest was obtained after the administration of 85 mL of Omnipaque 350 intravenous contrast without immediate adverse reactions. Axial MIP volume rendering provided. Sagittal and coronal reformatted images were obtained. This CT examination was performed using dose optimization techniques as appropriate, variously including the following: *Automated exposure control *Adjustment of mA and/or kV according to patient size (this includes techniques or standardized protocols for targeted exams where dose is matched to indication/reason for exam; i.e. extremities or head) *Use of iterative reconstruction technique FINDINGS: LUNGS: The lungs are clear with no evidence of inflammation or nodules. MEDIASTINUM: The mediastinum is normal. PLEURA: There is no pleural effusion. No pleural mass or thickening. AXILLA: No lymphadenopathy. UPPER ABDOMEN: Unremarkable OSSEOUS STRUCTURES: Unremarkable. CT/CT chest w IV con IMPRESSION: Unremarkable CT chest. Fleischner guidelines were followed. Electronically signed by: Deandre Koenig MD 08/29/2024 04:48 PM EDT
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
[2024-08-29 13:24] VITALS: BP 127/78; PULSE 87; O2SAT 97
--- NOTE | 2024-08-29 13:24 | MHC.EDTECH ---
pt came in via ems, c-collar on upon arrival, pt changed into hospital gown, vitals obtained
[2024-08-29 14:03] VITALS: BP 132/74; PULSE 76; RESP 16; TEMP 36.5; O2SAT 99; BMI 18.2
[2024-08-29 14:43] LABS: MANUAL DIFF FLAG NO
[2024-08-29 14:49] LABS: Hematocrit 38.5 % (37.0-47.0); Hemoglobin 14.1 g/dl (12.0-16.0); Imm Gran Abs Auto 0.01 X10*3/uL (0.00-0.03); Imm Gran Pct Auto 0.2 % (0.0-0.4); Lymphocytes Absolute Auto 1.3 X10*3/uL (1.2-4.9); Mean Corpuscular HGB Conc 36.6 g/dl (31.0-35.0); Mean Corpuscular Hemoglobin 32.4 pg (27.0-33.0); Mean Corpuscular Volume 88.5 fL (80.0-98.0); NRBC Abs Auto 0.000 X10*3/uL (0.0-0.012); NRBC Pct Auto 0.0 /100WBC (0.0-0.2); Platelet Count 156 X10*3/uL (160-400); Red Blood Count 4.35 X10*6/uL (4.20-5.50); White Blood Count 5.8 X10*3/uL (4.8-10.8)
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
[2024-08-29 14:59] LABS: Alanine Aminotransferase 50 U/L (0-31); Albumin Level 4.4 g/dL (3.5-5.0); Alkaline Phosphatase 39 U/L (39-117); Anion Gap 9 (12-20); Aspartate Amino Transferase 51 U/L (5-31); Blood Urea Nitrogen 15 mg/dL (9-16); Calcium 8.6 mg/dL (8.4-10.2); Carbon Dioxide 27 mmol/L (22-29); Chloride 107 mmol/L (96-108); Creatinine Clr Calc Pharmacy 82.5; Estimated Glomerular Filt Rate > 60; Potassium 4.4 mmol/L (3.3-5.1); Sodium 139 mmol/L (135-145); Total Protein 7.6 g/dL (6.5-8.0)
[2024-08-29] MEDS: iohexoL 350 MG/ML 100 ML INFUS..BTL IV (16:34)
[2024-08-29 16:53] VITALS: BP 101/54; PULSE 41; RESP 16; O2SAT 98
--- NOTE | 2024-08-29 17:33 | MHC.EDTECH ---
Assisted Pt to standing position to evaluate her ability to walk. Pt reports the most pain in her lower back. Pt reports minor dizziness with standing. Steady gait but slow. Provider aware.
[2024-08-29 18:00] VITALS: BP 106/65; PULSE 55; RESP 16; TEMP 36.5; O2SAT 100
== END 2024-08-29 18:02 | disposition home or self-care (01) ==
PROVIDERS: Physician Assistant Medical; Emergency Provider Emergency Medicine
DX: S09.90XA Unspecified injury of head, initial encounter (principal); S39.92XA Unspecified injury of lower back, initial encounter; D69.49 Other primary thrombocytopenia; R10.2 Pelvic and perineal pain; R07.89 Other chest pain; R51.9 Headache, unspecified; V43.52XA Car driver injured in collision with other type car in traffic accident, initial encounter; Y93.9 Activity, unspecified; Y92.410 Unspecified street and highway as the place of occurrence of the external cause; Y99.8 Other external cause status
CPT/HCPCS: 36415; 70450; 71260; 72125; 74177; 80053; 85025; 96365; 96374; 99284; J0131; J2270; Q9967

== ENCOUNTER → 2024-08-29 14:06 | Outpatient (BNV) | payer OTHER, SELFPAY | PROVIDERS: Emergency Provider Emergency Medicine; Visit Provider Radiology Diagnostic Radiology | DX: R10.9 Unspecified abdominal pain (principal); R07.9 Chest pain, unspecified; M54.2 Cervicalgia; R51.9 Headache, unspecified; V49.40XA Driver injured in collision with unspecified motor vehicles in traffic accident, initial encounter; M54.9 Dorsalgia, unspecified | CPT/HCPCS: 70450; 72125 ==

== ENCOUNTER 2024-12-04 17:42 | Emergency (ER) | payer OTHER, SELFPAY ==
--- NOTE | 2024-12-04 | ECG_ITS ---
Test Reason : NECK PAIN Blood Pressure : */* mmHG Vent. Rate : 60 BPM Atrial Rate : 60 BPM P-R Int : 140 ms QRS Dur : 78 ms QT Int : 428 ms P-R-T Axes : 19 67 53 degrees QTcB Int : 428 ms Normal sinus rhythm with sinus arrhythmia Cannot rule out Anterior infarct , age undetermined Abnormal ECG When compared with ECG of 09-Jan-2023 14:59, No significant change was found Referred By: Calvin Cardenas Electronically Signed By: SONY HESTER MD
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
--- NOTE | ~2024-12-04 | XR_ITS ---
CLINICAL HISTORY: trauma --- Additional Notes or Special Instructions: mostly 3rd digit 3 view right hand Comparison: None provided Findings: No fractures or dislocations. No erosions. No radiopaque foreign body. IMPRESSION: 1. No acute findings This document has been electronically signed by: Vonda Valladares MD on 12/04/2024 22:21:22
--- NOTE | ~2024-12-04 | CT_ITS ---
CLINICAL HISTORY: trauma Exam: Contrast-enhanced CT chest with multiplanar reformats. Comparison: 08/29/2024. Findings: Lungs are free of focal consolidation. No pulmonary nodules or parenchymal lesions. Airways are patent. No pneumothorax. No mediastinal or hilar masses or adenopathy. No pleural or pericardial effusions. Osseous structures reveal no fractures or traumatic malalignment. Impression: 1. No acute pulmonary disease or acute traumatic sequela to the chest. This document has been electronically signed by: Reynaldo Dave MD on 12/04/2024 20:55:55
--- NOTE | ~2024-12-04 | CT_ITS ---
CLINICAL HISTORY: trauma Exam: Contrast-enhanced CT abdomen and pelvis with multiplanar reformats. Comparison: 08/29/2024. Findings: CT abdomen: Lung bases are clear. Liver is intact and free of focal lesions and new ductal dilatation. Gallbladder is unremarkable. Spleen is intact and appears unremarkable. Pancreas and adrenal glands appear unremarkable. Kidneys are unremarkable and appear intact bilaterally. No free intraperitoneal fluid or retroperitoneal masses or adenopathy. Abdominal aorta is normal caliber. Bowel loops reveal no abnormal wall thickening or distention. CT pelvis: Uterus and adnexal structures appear unremarkable. Urinary bladder is free of gross filling defects. No pelvic masses, fluid or adenopathy. Osseous structures reveal no fractures or traumatic malalignment. Impression: 1. No acute abnormality or acute traumatic sequela to the abdomen or pelvis. This document has been electronically signed by: Reynaldo Dave MD on 12/04/2024 20:57:48
[2024-12-04 17:48] VITALS: BP 104/63; PULSE 86; O2SAT 99
[2024-12-04 17:56] VITALS: BP 109/65; PULSE 81; RESP 18; TEMP 36.6; O2SAT 97; BMI 20.7
[2024-12-04 18:13] VITALS: BP 115/64; PULSE 100
[2024-12-04 18:34] LABS: MANUAL DIFF FLAG NO
[2024-12-04 18:37] LABS: Appearance Urine Cloudy; Glucose Urine UA Negative (Negative); PH 8.0 (5.0-9.0); Specific Gravity - Urine <= 1.005 (1.005-1.025)
[2024-12-04 18:39] LABS: UPreg QC Valid YES
[2024-12-04 18:41] LABS: Hematocrit 40.2 % (37.0-47.0); Hemoglobin 14.1 g/dl (12.0-16.0); Imm Gran Abs Auto 0.02 X10*3/uL (0.00-0.03); Imm Gran Pct Auto 0.2 % (0.0-0.4); Lymphocytes Absolute Auto 1.6 X10*3/uL (1.2-4.9); Mean Corpuscular HGB Conc 35.1 g/dl (31.0-35.0); Mean Corpuscular Hemoglobin 31.4 pg (27.0-33.0); Mean Corpuscular Volume 89.5 fL (80.0-98.0); NRBC Abs Auto 0.000 X10*3/uL (0.0-0.012); NRBC Pct Auto 0.0 /100WBC (0.0-0.2); Platelet Count 182 X10*3/uL (160-400); Red Blood Count 4.49 X10*6/uL (4.20-5.50); White Blood Count 8.7 X10*3/uL (4.8-10.8)
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
[2024-12-04 18:46] LABS: Cannabinoid Screen Urine POSITIVE (Not Detect)
[2024-12-04 19:01] LABS: Alanine Aminotransferase 34 U/L (0-31); Albumin Level 4.4 g/dL (3.5-5.0); Alkaline Phosphatase 37 U/L (39-117); Anion Gap 11 (12-20); Aspartate Amino Transferase 38 U/L (5-31); Blood Urea Nitrogen 11 mg/dL (9-16); Calcium 9.0 mg/dL (8.4-10.2); Carbon Dioxide 31 mmol/L (22-29); Chloride 104 mmol/L (96-108); Creatinine Clr Calc Pharmacy 82.7; Estimated Glomerular Filt Rate > 60; Magnesium 1.8 mg/dL (1.6-2.6); Potassium 4.1 mmol/L (3.3-5.1); Sodium 142 mmol/L (135-145); Total Protein 7.5 g/dL (6.5-8.0); Troponin-I High Sensitivity < 2.7 ng/L (<3.5-17.0)
[2024-12-04] MEDS: iohexoL 350 MG/ML 100 ML INFUS..BTL 85 ML IV (19:33)
--- NOTE | 2024-12-04 21:06 | PC.NURSE ---
Neck collar removed by provider
[2024-12-04 22:36] VITALS: BP 115/64; PULSE 100; RESP 16; TEMP -17.7; TEMP 0; O2SAT 96
--- OUTSIDE RECORDS SUMMARY | 2024-12-04 22:38 | XMS_ITS | Encounter Summary ---
Author Organization [facility] Address [address] [place] [address] Care Team Providers Care Manager Warehouse Name Role Phone Feliciano Delgado MD Primary Care Provider [phone] Encounter Details Date Type Department Care Team Description 12/12/2019 Refill Adult Medicine - [place] [address] [place], [place] [phone] Feliciano Delgado MD [address] [place], [place] [phone] Social History Tobacco Use Types Packs/Day Years Used Date Smoking Tobacco: Every Day Cigarettes 0.5 6 Smokeless Tobacco: Never Comments:Pt also using eletr ic cig. Alcohol Use Standard Drinks/Week Comments No 0 (1 standard drink = 0.6 oz pur e alcohol) alcohol abuse in past Sex Assigned at Date Recorded Not on file Job Start Date Occupation Industry Not on file Not on file Not on file documented as of this encounter Miscellaneous Notes * Telephone Encounter - Hansa Hernandez - 12/12/2019 3:32 PM EDT Patient would like script to be: E-PRESCRIBED/FAXED TO PHARMACY WHEN WAS THE PATIENT'S LAST APPOINTMENT IN ADULT MEDICINE? 04/06/18 WHEN WAS THE LAST TIME THE PATIENT SAW THEIR PCP? 06/02/14 Does patient have an upcoming appointment? No-unable to reach left voicemaill to call for appointment due to refill request. Appt due (THE MEDICATION REQUESTED IS ON THE MED LIST ABOVE) All of the medications requested were on the CURRENT MEDS list Did you check the Pharmacy information above?: YES Patient wants: 30 -day supply Is this a mail order prescription request ? NO If the refill is from a FAXED refill request what is the RX # listed on the fax? N/A Patients current insurance carrier is: Payor: [employer] FFS / Plan: [employer] / Product Type: MEDICAID RISK documented in this encounter Plan of Treatment Not on file documented as of this encounter Visit Diagnoses Not on filedocumented in this encounter Care Teams Manager Warehouse Relationship Specialty Start Date End Date Feliciano Delgado MD [address] [place] [id number] PCP - General Internal Medicine 10/17/12 documented as of this encounter
--- OUTSIDE RECORDS SUMMARY | 2024-12-04 22:38 | XMS_ITS | Encounter Summary ---
Author Organization [facility] Address [address] [place] [address] Care Team Providers Care Lease Purchase Driver Name Role Phone Feliciano Delgado MD Primary Care Provider [phone] Reason for Visit * Reason Comments E-prescribe Rx Request Encounter Details Date Type Department Care Team Description 07/04/2023 Refill Adult Medicine - [place] [address] [place] [address] Berny Mcpherson PA [address] [place] [address] E-prescribe Rx Request Social History Tobacco Use Types Packs/Day Years Used Date Smoking Tobacco: Every Day Cigarettes 0.3 6 Smokeless Tobacco: Never Comments:Pt also using eletr ic cig. Alcohol Use Standard Drinks/Week Comments No 0 (1 standard drink = 0.6 oz pur e alcohol) alcohol abuse in past Sex Assigned at Date Recorded Not on file Job Start Date Occupation Industry Not on file Not on file Not on file documented as of this encounter Miscellaneous Notes * Telephone Encounter - Eladia [place] - 07/04/2023 10:37 AM EDT Refill on med list ? Last office visit :??03/29/23 ?? Last time with PCP:??02/04/22 ?? Next office visit :??09/20/2023 documented in this encounter Plan of Treatment Not on file documented as of this encounter Visit Diagnoses Diagnosis Bilateral low back pain without sciatica, unspecified chronicity Acute bilateral thoracic back pain documented in this encounter Care Teams Lease Purchase Driver Relationship Specialty Start Date End Date Feliciano Delgado MD [address] [place] [id number] PCP - General Internal Medicine 10/17/12 documented as of this encounter
--- OUTSIDE RECORDS SUMMARY | 2024-12-04 22:38 | XMS_ITS | Encounter Summary ---
Author Organization [facility] Address [address] [place] [address] Care Team Providers Care Battery Technician Name Role Phone Tiffany Spangler DO Primary Care Provider Feliciano Reyna MD Primary Care Provider [phone] Encounter Details Date Type Department Care Team Description 06/18/2012 Transfer Records Medical Records [address] [place] [id number] Abstract, Provider Social History Tobacco Use Types Packs/Day Years Used Date Smoking Tobacco: Every Day Cigarettes 0.5 Smokeless Tobacco: Never Comments:smokes < 1/2 PPD Alcohol Use Standard Drinks/Week Comments No 0 (1 standard drink = 0.6 oz pur e alcohol) alcohol abuse Sex Assigned at Date Recorded Not on file Job Start Date Occupation Industry Not on file Not on file Not on file documented as of this encounter Plan of Treatment Not on file documented as of this encounter Visit Diagnoses Not on filedocumented in this encounter Care Teams Battery Technician Relationship Specialty Start Date End Date Tiffany Spangler DO PCP - General Internal Medicine 02/24/11 10/16/12 Feliciano Delgado MD [address] [place] [address] PCP - General Internal Medicine 10/17/12 documented as of this encounter
--- OUTSIDE RECORDS SUMMARY | 2024-12-04 22:39 | XMS_ITS | Encounter Summary ---
Author Organization [facility] Address [address] [place] [address] Care Team Providers Care Road Mender Name Role Phone Feliciano Delgado MD Primary Care Provider [phone] Reason for Referral * Non LYNDSEY (Priority) - Authorized/Booked Specialty Diagnoses / Procedures Referred By Contangélica t Referred To Contact Gastroenterology Procedures REFERRAL TO GASTROENTEROLOGY Carmen Quiles NP [address] [place] [address] Gastro [place]/[address] [facility] [address] [place] [id number] Referral ID Status Reason Start Date Expiration Date V isits Requested Visits Authorized [id number] Authorized/B ooked 10/20/2023 1 1 Reason for Visit * Reason Onset Date Comments REFERRAL 10/19/2023 Encounter Details Date Type Department Care Team Description 10/19/2023 Telephone Adult Medicine - [place] [address] [place] [address] Carmen Quiles NP REFERRAL Social History Tobacco Use Types Packs/Day Years [...] encounter Miscellaneous Notes * Telephone Encounter - Carmen Quiles NP - 10/20/2023 12:19 PM EDT Referral submitted * Telephone Encounter - Rocio Jain M.A. - 10/20/2023 10:41 AM EDT Hi Carmen, Patient is interestd in being seen by team supervisor for her stomach issues with her vomiting. Please advise. Thank You * Telephone Encounter - Marina Wagoner - 10/19/2023 10:16 AM EDT Pt is asking for referral to gastro. Saw Carmen on 09/26 for vomiting. She has never seen a team supervisor, no preference as where to go. documented in this encounter Plan of Treatment Not on file documented as of this encounter Visit Diagnoses Not on filedocumented in this encounter Care Teams Road Mender Relationship Specialty Start Date End Date Feliciano Delgado MD [address] [place] [id number] PCP - General Internal Medicine 10/17/12 documented as of this encounter
--- OUTSIDE RECORDS SUMMARY | 2024-12-04 22:39 | XMS_ITS | Encounter Summary ---
Author Organization [facility] Address [address] [place] [address] Care Team Providers Care Library Cataloging Technician Name Role Phone Feliciano Delgado MD Primary Care Provider [phone] Encounter Details Date Type Department Care Team Description 04/16/2015 Release of Information Medical Records [address] [place] [id number] Abstract, Provider Social History Tobacco Use Types Packs/Day Years Used Date Smoking Tobacco: Every Day Cigarettes 0.5 Smokeless Tobacco: Never Comments:Pt also using eletr [...] on filedocumented in this encounter Care Teams Library Cataloging Technician Relationship Specialty Start Date End Date Feliciano Delgado MD [address] [place], [place] [phone] PCP - General Internal Medicine 10/17/12 documented as of this encounter
--- OUTSIDE RECORDS SUMMARY | 2024-12-04 22:39 | XMS_ITS | Encounter Summary ---
Author Organization [facility] Address [facility] [place] [address] Care Team Providers Care Ice Cream Mixer Name Role Phone Feliciano Delgado MD Primary Care Provider [phone] Encounter Details Date Type Department Care Team Description 11/08/2023 Telephone Gastroenterology - [address] [place] [phone] Laurel Cevallos DScPAS Social History Tobacco Use Types Packs/Day Years [...] encounter Miscellaneous Notes * Telephone Encounter - Naomi Gore C.M.A. - 11/17/2023 9:55 AM EDT Left a message for the patient to call the office * Telephone Encounter - Naomi Gore C.M.A. - 11/17/2023 9:54 AM EDT ----- Message from Simone Moore sent at 11/12/2023 7:56 PM EDT ----- Please call patient let her know that H. pylori test was negative but one of the antibodies was elevated rising possibility of celiac disease. But I am still waiting for more blood work to [facility], thank you so much * Telephone Encounter - Naomi Gore C.M.A. - 11/08/2023 1:14 PM EDT Patient is scheduled for a ultrasound on November 22 Patient is to head over to patient registration for - 8:50am Location is [address] Patient is to have nothing to eat or drink after midnight. You are also scheduled for a Upper GI Study Patient is scheduled for her upper Gi study over at [facility] on January 14 Head to patient registration for - 8:10am Patient is to have nothing to eat or drink after midnight If you have to reschedule these appointments please call [phone] Put letter up front for patient to pickle pumper documented in this encounter Plan of Treatment Not on file documented as of this encounter Visit Diagnoses Not on filedocumented in this encounter Care Teams Ice Cream Mixer Relationship Specialty Start Date End Date Feliciano Delgado MD [address] [place] [id number] PCP - General Internal Medicine 10/17/12 documented as of this encounter
--- OUTSIDE RECORDS SUMMARY | 2024-12-04 22:39 | XMS_ITS | Encounter Summary ---
Author Organization [facility] Address [address] [place] [address] Care Team Providers Care Server Engineer Name Role Phone Feliciano Delgado MD Primary Care Provider [phone] Reason for Visit * Reason Onset Date Comments REFERRAL 10/09/2023 General Surgery Encounter Details Date Type Department Care Team Description 10/09/2023 Telephone Adult Medicine - [place] [address] [place] [address] Feliciano Delgado MD [address] [place], [place] [phone] REFERRAL (General Surgery) Social History Tobacco Use Types Packs/Day Years [...] encounter Miscellaneous Notes * Telephone Encounter - Marina Wagoner - 10/19/2023 10:20 AM EDT Pt has a new number ([phone]). Her reproductive healthcare assistant Cielo called with her and you can alsocall her. Pt would like to reschedule an appt for the neck bump/lymph node with surgeon. * Telephone Encounter - Gudelia Roberson - 10/10/2023 12:47 PM EDT I called the patient and left a voicemail. The patient was scheduled with Dr. Salcedo on 08/24/23 andseda mccormick showed the appointment. * Telephone Encounter - Marce Tate - 10/09/2023 9:43 AM EDT Pt waiting on her referral to surgery that was put in by Carmen Quiles on 07/24 documented in this encounter Plan of Treatment Not on file documented as of this encounter Visit Diagnoses Not on filedocumented in this encounter Care Teams Server Engineer Relationship Specialty Start Date End Date Feliciano Delgado MD [address] [place] [id number] PCP - General Internal Medicine 10/17/12 documented as of this encounter
--- OUTSIDE RECORDS SUMMARY | 2024-12-04 22:39 | XMS_ITS | Clinical Summary ---
Author Organization [facility] Address [address] [place] [address] Care Team Providers Care Expanding Machine Operator Name Role Phone Feliciano Delgado MD Primary Care Provider [phone] Allergies Active Allergy Reactions Severity Noted Date Comments Quercus Robur 12/09/2014 Pollen Runny Nose/Rhinitis 03/03/2021 Medications Medication Sig Dispensed Refills Start Date End Date Status ProAir HFA 108 (90 Base) MCG/ACT Aero Soln 0 01/03/2021 Active methadone 10 MG/5ML solution Take 65 mL by mouth daily. 130 mg total a day 0 Active hydrOXYzine (ATARAX) 25 MG tablet Take 1 Tablet by mouth every 8 hours as needed for Anxiety. 60 Tablet 0 07/26/2023 Active gabapentin (NEURONTIN) 300 MG capsule Take 1 capsule by mouth with 1 capsule 100mg capsule for the total dose of 400mg 3 times a day 270 Capsule 0 09/27/2023 Active ibuprofen (ADVIL,MOTRIN) 600 MG tablet Take 1 Tablet by mouth every 8 hours as needed for Pain. 30 Tablet 0 09/27/2023 Active ondansetron (ZOFRAN) 4 MG tablet Take 1 Tablet by mouth every 8 hours as needed for Nausea for up to 7 days. 30 Tablet 3 11/08/2023 Active gabapentin (NEURONTIN) 100 MG capsule TAKE [address] [facility] 3 TIMES A DAY TOGETHER WITH GABAPENTIN 300MG 3 TIMES A DAY. 270 Capsule 0 11/08/2023 Active quetiapine (SEROQUEL) 25 MG tablet TAKE 1 TABLET BY MOUTH THREE TIMES A DAY 90 Tablet 1 11/08/2023 Active cyclobenzaprine (FLEXERIL) 5 MG tabletIndications:B ilateral low back pain without sciatica, unspecified chronicity,Acute bilateral thoracic back pain TAKE 1 TABLET BY MOUTH THREE TIMES A DAY NEEDED FOR MUSCLE SPASM 90 Tablet 0 11/08/2023 Active alprazolam (XANAX) 1 MG tablet 0 11/16/2023 Active Active Problems Problem Noted Date Encounter for hepatitis C virus screenin g test for high risk patient 10/20/2022 Overview: +Hep C screening; viral load undetectable Abdominal pain 05/14/2018 Overview: 05/01- never followed up with gastroenterology, letter sent 08/01- sono abdomen and GI never done, letter sent Vitamin D insufficiency 04/11/2018 Subclinical hypothyroidism 08/04/[address] scan, neck 10/03/2016 Overview: Asymmetrical lymph node left 2015, never followed up with general surgery for fine-needle biopsy, new referral placed 09/29 01/30- f/u ct never done, letter sent. 08/01- CT never done, letter sent Opioid dependence 04/04/2013 Overview: [facility] 03/29 [facility] [place] 11/04 Marfan syndrome 07/11/2012 Overview: Presumptive diagnosis: Some Marfanoid features, no ocular or cardiac abnormalities. 01/30- DXA and cxr never done, letter sent 08/01- DXA never done, letter sent Fibromyalgia 01/20/2012 Chondromalacia of patella 01/20/2012 Adult ADHD 01/19/2012 Positive DANIKA (antinuclear antibody) 11/15 Overview: Positive sjogrens ab. May develop later Anxiety 08/23/2011 Overview: 08/2011- discharged from current [facility] in [place] for missing appts. Previously on paxil and lorazepam. 09/2012- Jerry Saxena, [facility] Raynaud's phenomenon 02/24/2011 Arthralgia 02/10/2011 Overview: Onset ~ 2009: No swollen joints. DANIKA, Sjogren's Ab positive. RF, anti-LABEL CODER, anti- Sm, anti-DNA negative. Pain med---CSC violation (MJ) Asthma 01/31/2007 Resolved Problems Problem Noted Date Resolved Date longterm current use of opiate analgesic 201211/05/2012 Immunizations Name Administration Dates Next Due COVID-19 (Moderna) 03/02/2021,02/02/2021 DTP 06/05/1995, 2,1990,07/28,1990 HIB 06/14/1991, 2,1990,10/28,1990,1990,1990 ,1990 Hepatitis B-3 Dose (<19yrs) 06/05/1995, 5,09/08/1994 Influenza (> 6 Months) 01/17/2006 Influenza H1N1 Pandemic Flu Vaccine 12/09/2008 MMR (Eyuqbus-Apsop-Mjxcgvr) 06/05/1995,0 06/05/1995,06/28/1991,06/27 Meningococcal (Menactra) 10/01/2007 Polio (OPV) 06/05/1995, 6,10/29/1991,10/28,1990,1990,1990 ,1990,1990,1990 TD (STATE SUPPLIED FOR ADULT S AND CHILDREN) 03/22/2000 TETANUS/DIPTHERIA (ADULT) 03/22/2000 Tdap 01/08/2011,10/01/2007 Varicella Disease-Positive + 03/08/1993 Family History Medical History Relation Name Comments CA Breast Negative Hx CA Colon Negative Hx CA Ovarian Negative Hx CA Prostate Negative Hx CA of Pancreas Negative Hx Uterine Cancer Negative Hx Relation Name Status Comments Brother Alive Father Alive Mother Alive gallbladder Sister Alive Social History Tobacco Use Types Packs/Day Years Used Date Smoking Tobacco: Every Day Cigarettes 0.3 6 Smokeless Tobacco: Never Tobacco Cessation:Ready to Q uit: Not Asked; Counseling Given: Not Answered Comments:Pt also using eletric cig. Alcohol Use Standard Drinks/Week Comments No 0 (1 standard drink = 0.6 oz pur e alcohol) alcohol abuse in past Sex Assigned at Date Recorded Not on file Job Start Date Occupation Industry Not on file Not on file Not on file Last Filed Vital Signs Vital Sign Reading Time Taken Comments Blood Pressure 113/72 11/20/2023 2:14 PM EDT Pulse 86 11/20/2023 2:14 PM EDT Temperature 37 C (98.6 F) 09/27/2023 8:42 AM EDT Respiratory Rate 16 03/29/2023 10:0 9 AM EST Oxygen Saturation 98% 11/08/2023 10: 10 AM EDT Inhaled Oxygen Concentration - - Weight 72.9 kg (160 lb 12.8 oz) 11/20/2023 2:14 PM EDT Height 185.4 cm (6' 1 ) 11/20/2023 2:14 PM EDT Body Mass Index 21.22 11/20/2023 2:14 PM EDT Plan of Treatment Health Maintenance Due Date Last Done Comments CERVICAL CANCER SCREENING 12/09/2017 12/09/2014 DTAP/TDAP/TD (8 - Td or Tdap) 01/08/2021, 10/01/2007, 03/22/2000, Additional history exists DEPRESSION SCREENING/FOLLOWUP 02/14/2024, 05/24/2023, 02/04/2022, Additional history exists SOCIAL NEEDS SCREENING 02/14/2024 (Completed), 03/03/2021, 04/15/2020 Covid-19 Vaccine (3 2022-2 4 season) 2024 03/02/2021, 02/02/2021 INFLUENZA (#1) 2024 04/06/2018 (Refu sed), 01/17/2006 TOBACCO CHECK/ADVISE 10/18/2025 10/19/2023, 10/09/2023, 09/27/2023, Additional history exists BASELINE HEALTH EXAM 18-39 10/26/202710/25, 10/25/2022, 03/03/2021, Additional history exists CHOLESTEROL SCREENING 10/26/2027 10/25/2022 , 04/15/2020, 10/25/2013, Additional history exists PNEUMOCOCCAL VACCINE FOR HIG H RISK PATIENTS (#2) 2055 06/02/2014 (Refused) Care Teams Expanding Machine Operator Relationship Specialty Start Date End Date Feliciano Delgado MD [address] [place] [id number] PCP - General Internal Medicine 10/17/12
--- OUTSIDE RECORDS SUMMARY | 2024-12-04 22:39 | XMS_ITS | Encounter Summary ---
Author Organization [facility] Address [address] [place] [address] Care Team Providers Care Venetian Blind Cleaner And Repairer Name Role Phone Feliciano Delgado MD Primary Care Provider [phone] Encounter Details Date Type Department Care Team Description 11/08/2023 Abstract Gastroenterology - [place] [address] [facility] [address] [place] [address] Laurel Cevallos, ElianPAS Social History Tobacco Use Types Packs/Day Years [...] on filedocumented in this encounter Care Teams Venetian Blind Cleaner And Repairer Relationship Specialty Start Date End Date Feliciano Delgado MD [address] [place] [address] PCP - General Internal Medicine 10/17/12 documented as of this encounter
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
--- OUTSIDE RECORDS SUMMARY | 2024-12-04 22:39 | XMS_ITS | Encounter Summary ---
Author Organization [facility] Address [address] [place] [address] Care Team Providers Care Play Leader Name Role Phone Feliciano Delgado MD Primary Care Provider [phone] Reason for Visit * Reason Onset Date Comments Orders Call 09/27/2018 DXA BONE DENSITY STUDY 1+ SITS AXIAL SKEL Encounter Details Date Type Department Care Team Description 09/27/2018 Telephone Adult Medicine - [place] [address] [place] [address] Feliciano Delgado MD [address] [place] [address] Orders Call (DXA BONE DENSITY STUDY 1+ SITS AXIAL SKEL ) Social History Tobacco Use Types Packs/Day Years [...] encounter Miscellaneous Notes * Telephone Encounter - Tisha Schmitt M.A. - 09/27/2018 10:21 AM EDT Left voicemail. Advised to call the office .Please advised of message below Advised pt to schedule DXA BONE DENSITY STUDY 1+ SITS AXIAL SKEL documented in this encounter Plan of Treatment Not on file documented as of this encounter Visit Diagnoses Not on filedocumented in this encounter Care Teams Play Leader Relationship Specialty Start Date End Date Feliciano Delgado MD [address] [place] [address] PCP - General Internal Medicine 10/17/12 documented as of this encounter
--- OUTSIDE RECORDS SUMMARY | 2024-12-04 22:39 | XMS_ITS | Encounter Summary ---
Author Organization [facility] Address [address] [place] [address] Care Team Providers Care Fabricator Artificial Breast Name Role Phone Feliciano Delgado MD Primary Care Provider [phone] Encounter Details Date Type Department Care Team Description 12/13/2021 Refill Adult Medicine - [place] [address] [place], [place] [phone] Carmen Quiles, PROGRAM MANAGER TRANSPORTATION Social History Tobacco Use Types Packs/Day Years [...] on filedocumented in this encounter Care Teams Fabricator Artificial Breast Relationship Specialty Start Date End Date Feliciano Delgado MD [address] [place], [place] [phone] PCP - General Internal Medicine 10/17/12 documented as of this encounter
--- OUTSIDE RECORDS SUMMARY | 2024-12-04 22:39 | XMS_ITS | Encounter Summary ---
Author Organization [facility] Address [address] [place] [address] Care Team Providers Care Rheostat Assembler Name Role Phone Feliciano Delgado MD Primary Care Provider [phone] Encounter Details Date Type Department Care Team Description 09/29/2018 Night Triage Doc Medical Records [address] [place] [address] Abstract, Provider Social History Tobacco Use Types [...] on filedocumented in this encounter Care Teams Rheostat Assembler Relationship Specialty Start Date End Date Feliciano Delgado MD [address] [place], [place] [phone] PCP - General Internal Medicine 10/17/12 documented as of this encounter
--- OUTSIDE RECORDS SUMMARY | 2024-12-04 22:39 | XMS_ITS | Encounter Summary ---
Author Organization [facility] Address [address] [place] [address] Care Team Providers Care Nuisance Wildlife Trapper Name Role Phone Feliciano Delgado MD Primary Care Provider [phone] Reason for Visit * Reason Comments E-prescribe Rx Request Encounter Details Date Type Department Care Team Description 09/25/2023 Refill Adult Medicine - [place] [address] [place], [place] [phone] Feliciano Delgado MD [address] [place], [place] [phone] E-prescribe Rx Request Social History Tobacco Use [...] encounter Miscellaneous Notes * Telephone Encounter - Marce Tate - 09/27/2023 5:00 PM EDT duplicate documented in this encounter Plan of Treatment Not on file documented as of this encounter Visit Diagnoses Not on filedocumented in this encounter Care Teams Nuisance Wildlife Trapper Relationship Specialty Start Date End Date Feliciano Delgado MD [address] [place], [place] [phone] PCP - General Internal Medicine 10/17/12 documented as of this encounter
--- OUTSIDE RECORDS SUMMARY | 2024-12-04 22:39 | XMS_ITS | Encounter Summary ---
Author Organization [facility] Address [address] [place] [address] Care Team Providers Care Logging Superintendent Name Role Phone Tiffany Spangler DO Primary Care Provider Feliciano Reyna MD Primary Care Provider [phone] Reason for Visit * Reason Onset Date Comments refill request 08/10/2012 Encounter Details Date Type Department Care Team Description 08/10/2012 Refill Adult Medicine [address] [address] Tiffany Spangler DO refill request Social History Tobacco Use Types Packs/Day Years [...] encounter Miscellaneous Notes * Telephone Encounter - Bailey Martinez M.A. - 08/13/2012 10:30 AM EDT Krisitin please advise pt has a CSC for oxycodone 5 mg Tid but pt has been getting bid please advise which is correct. If pt should be taking tid then we need a new csc Rx was filled 07/10/12 for BID per pt * Telephone Encounter - Bailey Martinez M.A. - 08/10/2012 10:42 AM EDT Pt due only for flexeril Controlled substance contract and last issue date of medication reviewed. Patient is due for medication. Component Value Date URINEOXYCOD POSITIVE 03/13/2012 URBENZO POSITIVE 03/13/2012 URAMPHETAMIN NEGATIVE 03/13/2012 URMARIJUANA NEGATIVE 03/13/2012 UROPIATES NEGATIVE 03/13/2012 URBARBITUATE NEGATIVE 03/13/2012 URCOCAINE NEGATIVE 03/13/2012 HYDROCODONE NOT DETECTED 03/13/2012 Pt was given rx for oxycotin 08/08/12 at appt with Amie. I have called pt to let her know * Telephone Encounter - Jayleen Tadeo - 08/10/2012 9:34 AM EDT WHEN WAS THE PATIENT'S LAST APPOINTMENT IN ADULT MEDICINE? 08-08-2012 WHEN WAS THE LAST TIME THE PATIENT SAW THEIR PCP? 06-13-2012 Does patient have an upcoming appointment? Yes 09-25-2012 (THE MEDICATION REQUESTED IS ON THE MED LIST ABOVE) All of the medications requested were on the CURRENT MEDS list Did you check the Pharmacy information above?: NO Patient wants: 30 -day supply Patient would like script to be: PLACED IN PATIENT PATIENT SCHEDULING COORDINATOR Is this a mail order prescription request ? NO Indicate how soon the patient needs the script: LIAM Patients current insurance carrier is: Payor: [place] FFS Plan: HMO $20 [employer] [id number] Product Type: HMO [id number] documented in this encounter Plan of Treatment Not on file documented as of this encounter Visit Diagnoses Not on filedocumented in this encounter Care Teams Logging Superintendent Relationship Specialty Start Date End Date Tiffany Spangler DO PCP - General Internal Medicine 02/24/11 10/16/12 Feliciano Delgado MD [address] [place] [id number] PCP - General Internal Medicine 10/17/12 documented as of this encounter
--- OUTSIDE RECORDS SUMMARY | 2024-12-04 22:40 | XMS_ITS | Encounter Summary ---
Author Organization [facility] Address [address] [place] [address] Care Team Providers Care Coffee Plantation Worker Name Role Phone Feliciano Delgado MD Primary Care Provider [phone] Encounter Details Date Type Department Care Team Description 12/14/2021 Telephone Pediatrics - [place] [address] [place], [place] [phone] Feliciano Delgado MD [address] [place], [place] [phone] Social History Tobacco Use Types Packs/Day Years [...] encounter Miscellaneous Notes * Telephone Encounter - Feliciano Delgado MD - 12/14/2021 12:23 PM EDT Cannot prescribe clonazepam since patient has a previous violation. I do not think this would be a good prescription for us to provide anyway given her other medical issues and should be prescribed by a psychiatrist. * Telephone Encounter - Christiano Nuvia Lyons - 12/14/2021 11:22 AM EDT Rx for flexeril too soon last witting on12/10/21 90/30days Csc is listed as violated as of 12/27/2012 Lab Results Component Value Date URBENZO NEGATIVE 10/03/2012 UROPIATES NEGATIVE 10/03/2012 URBARBITUATE NEGATIVE 10/03/2012 Pend order please review and sign. Thank you * Telephone Encounter - Christiano Mariee - 12/14/2021 11:22 AM EDT ----- Message from Bailee Gonzalez sent at 12/14/2021 11:19 AM EDT ----- Regarding: medication Contact: Hi I???m at [facility] I would like to see if my provider would help me with my clonazapam until my provider here or I can find one because mine at [facility] in [place] left it , so we???re trying here to figure that out .I???ve been on them since 13 so my provider here would like to talk to you. And id like my flexeral for my periods and my bad bones , I have an appointment on bud I do not want ,be sick so whenever you get back to me that be great hopefully today . I???m in recovery and I???m really trying to do this the right way and I would really appreciate your help, I have never abused my medications that I???ve needed the most . documented in this encounter Plan of Treatment Not on file documented as of this encounter Visit Diagnoses Not on filedocumented in this encounter Care Teams Coffee Plantation Worker Relationship Specialty Start Date End Date Feliciano Delgado MD [facility] [address] [place], [place] [phone] PCP - General Internal Medicine 10/17/12 documented as of this encounter
--- OUTSIDE RECORDS SUMMARY | 2024-12-04 22:40 | XMS_ITS | Encounter Summary ---
Author Organization [facility] Address [address] [place] [address] Care Team Providers Care Bush And Vine Farmer Fruit Crops Name Role Phone Feliciano Delgado MD Primary Care Provider [phone] Encounter Details Date Type Department Care Team Description 04/09/2013 Release of Information Medical Records [address] [place] [address] Abstract, Provider Social History Tobacco Use Types [...] on filedocumented in this encounter Care Teams Bush And Vine Farmer Fruit Crops Relationship Specialty Start Date End Date Feliciano Delgado MD [address] [place], [place] [phone] PCP - General Internal Medicine 10/17/12 documented as of this encounter
--- OUTSIDE RECORDS SUMMARY | 2024-12-04 22:40 | XMS_ITS | Encounter Summary ---
Author Organization [facility] Address [address] [place] [address] Care Team Providers Care Reduction Plant Supervisor Name Role Phone Feliciano Delgado MD Primary Care Provider [phone] Encounter Details Date Type Department Care Team Description 06/22/2021 Telephone Adult Medicine - [place] [address] [place] [address] Kusum Cole PA-C [address] [place] [address] Social History Tobacco Use Types Packs/Day Years [...] Miscellaneous Notes * Telephone Encounter - Marce Arroyo M.A. - 06/22/2021 1:57 PM EDT Called pt and left message to return call, if pt calls back she has scheduled appt with Laureen 06/24, checking to see how long her hospital stay was. Er f/u appt can stay or if it is a hospital stay this appt will have to be rebooked as the provider does not do hospital f/u. The encounter does not provide this info. documented in this encounter Plan of Treatment Not on file documented as of this encounter Visit Diagnoses Not on filedocumented in this encounter Care Teams Reduction Plant Supervisor Relationship Specialty Start Date End Date Feliciano Delgado MD [address] [place] [address] PCP - General Internal Medicine 10/17/12 documented as of this encounter
--- OUTSIDE RECORDS SUMMARY | 2024-12-04 22:40 | XMS_ITS | Encounter Summary ---
Author Organization [facility] Address [address] [place] [address] Care Team Providers Care Dean Of Admissions Name Role Phone Feliciano Delgado MD Primary Care Provider [phone] Encounter Details Date Type Department Care Team Description 07/05/2021 Hospital Medical Records [address] [place] [address] Abstract, Provider Social History Tobacco Use Types [...] on filedocumented in this encounter Care Teams Dean Of Admissions Relationship Specialty Start Date End Date Feliciano Delgado MD [address] [place], [place] [phone] PCP - General Internal Medicine 10/17/12 documented as of this encounter
--- OUTSIDE RECORDS SUMMARY | 2024-12-04 22:40 | XMS_ITS | Encounter Summary ---
Author Organization [facility] Address [address] [place] [address] Care Team Providers Care Turn Down Man Name Role Phone Feliciano Delgado MD Primary Care Provider [phone] Encounter Details Date Type Department Care Team Description 06/22/2021 Telephone Medicine/Pediatrics - [address] [phone] Kusum Cole PA-C [address] [place] [address] Social History Tobacco Use Types Packs/Day Years [...] encounter Miscellaneous Notes * Telephone Encounter - Maribel Farias M.A. - 06/30/2021 9:28 AM EDT Pt no showed this appt. Next appt is in August 2021 with Carmen Quiles * Telephone Encounter - Kusum Cole PA-C - 06/22/2021 12:45 PM EDT Please confirm if this appt is for ER follow up or hospital follow up- I do not do hosptial follow ups. If ER follow up please make sure we have notes. I do not see anything about this in telephone messages for what this is about. documented in this encounter Plan of Treatment Not on file documented as of this encounter Visit Diagnoses Not on filedocumented in this encounter Care Teams Turn Down Man Relationship Specialty Start Date End Date Feliciano Delgado MD [address] [place] [address] PCP - General Internal Medicine 10/17/12 documented as of this encounter
--- OUTSIDE RECORDS SUMMARY | 2024-12-04 22:41 | XMS_ITS | Encounter Summary ---
Author Organization [facility] Address [address] [place] [address] Care Team Providers Care Donor Services Technician Name Role Phone Feliciano Delgado MD Primary Care Provider [phone] Reason for Visit * Reason Onset Date Comments Provider Call Back 03/03/2021 Encounter Details Date Type Department Care Team Description 03/03/2021 Telephone Adult Medicine - [place] [address] [place] [address] Feliciano Delgado MD [address] [place], [place] [phone] Provider Call Back Social History Tobacco Use Types Packs/Day Years [...] file Not on file Not on file COVID-19 Exposure Response Date Recorded In the last month, have you been in contact with someone who was confirmed or suspected to have Coronavirus / COVID-19? No / Unsure 03/03/2021 1:29 PM EST documented as of this encounter Miscellaneous Notes * Telephone Encounter - Carmen Quiles NP - 03/05/2021 5:03 PM EST I called patient back yesterday and we sorted out the issue. She will use Debrox before the procedure. * Telephone Encounter - Aleksandra Olson - 03/03/2021 2:52 PM EST Pt had appt with Carmen today. She is coming back to have her ears flushed. BSR advised her to use debrox three days before appt and pt states that Carmen mentioned to her to use cooking oil in replace of that? Pt states that she is supposed to heat it up a tiny bit and put it in her ears. Pt is asking for a call back to either confirm or deny this. BSR tried finding Carmen after her apptbut she was already in with another pt. Please advise. documented in this encounter Plan of Treatment Not on file documented as of this encounter Visit Diagnoses Not on filedocumented in this encounter Care Teams Donor Services Technician Relationship Specialty Start Date End Date Feliciano Delgado MD [address] [place] [address] PCP - General Internal Medicine 10/17/12 documented as of this encounter
--- OUTSIDE RECORDS SUMMARY | 2024-12-04 22:41 | XMS_ITS | Encounter Summary ---
Author Organization [facility] Address [address] [place] [address] Care Team Providers Care Seamer Panty Hose Name Role Phone Feliciano Delgado MD Primary Care Provider [phone] Reason for Visit * Reason Onset Date Comments Medication 08/19/2015 Encounter Details Date Type Department Care Team Description 08/19/2015 Telephone General Surgery [address] [place], [place] [phone] Billy Ventura MD [address] [place], [place] [phone] Medication Social History Tobacco Use Types Packs/Day Years [...] encounter Miscellaneous Notes * Telephone Encounter - Rachel Sterling L.P.N. - 09/03/2015 7:01 AM EDT Unable to reach this pt via phone. Message to call and schedule a follow-up appointment with Dr Ventura sent via her e-mail address./dg * Telephone Encounter - Paul Beltrán M.A. - 09/01/2015 10:51 AM EDT I called phone number [phone] and the phone number has been disconnected * Telephone Encounter - Lizzy Major C.M.A. - 08/20/2015 8:55 AM EDT Message was left. * Telephone Encounter - Billy Ventura MD - 08/19/2015 11:16 AM EDT Have her stop that medication and come into the office next week for reevaluation. * Telephone Encounter - Lizzy Major C.M.A. - 08/19/2015 10:[address] Ventura please advise * Telephone Encounter - Alfonso Vega - 08/19/2015 10:54 AM EDT Patient was prescribed Doxycycline Monohydrate (ADOXA) [address] Ventura for her neck. Patient states this medication has not helped her. She states this medication is making her sick. She would like a different medication to help her neck and not make her sick. Please advise thank you documented in this encounter Plan of Treatment Not on file documented as of this encounter Visit Diagnoses Not on filedocumented in this encounter Care Teams Seamer Panty Hose Relationship Specialty Start Date End Date Feliciano Delgado MD [facility] [place] [address] PCP - General Internal Medicine 10/17/12 documented as of this encounter
--- OUTSIDE RECORDS SUMMARY | 2024-12-04 22:41 | XMS_ITS | Encounter Summary ---
Author Organization [facility] Address [address] [place] [address] Care Team Providers Care Drop Hammer Pile Driver Operator Name Role Phone Feliciano Delgado MD Primary Care Provider [phone] Encounter Details Date Type Department Care Team Description 09/19/2017 Release of Information Medical Records [address] [place] [id number] Abstract, Provider Social History Tobacco Use Types [...] on filedocumented in this encounter Care Teams Drop Hammer Pile Driver Operator Relationship Specialty Start Date End Date Feliciano Delgado MD [address] [place], [place] [phone] PCP - General Internal Medicine 10/17/12 documented as of this encounter
--- OUTSIDE RECORDS SUMMARY | 2024-12-04 22:41 | XMS_ITS | Encounter Summary ---
Author Organization [facility] Address [address] [place] [address] Care Team Providers Care Clinical Trial Specialist Name Role Phone Feliciano Delgado MD Primary Care Provider [phone] Encounter Details Date Type Department Care Team Description 11/17/2015 Telephone Adult Medicine - [address] [address] Stuart Guillen PA Social History Tobacco Use Types Packs/Day Years [...] encounter Miscellaneous Notes * Telephone Encounter - Elizabeth [place] - 11/18/2015 9:23 AM EDT Pt has been informed of message. * Telephone Encounter - Stuart Guillen PA-C - 11/17/2015 5:41 PM EDT Please call patient and mentioned that I forgot to order a one-year annual echocardiogram, it appears that the one that was ordered last year has yet to be completed, however a new order was placed today as that one had . Please emphasize that it is important to have annual echocardiograms for her Marfan syndrome. Thank you. documented in this encounter Plan of Treatment Not on file documented as of this encounter Visit Diagnoses Not on filedocumented in this encounter Care Teams Clinical Trial Specialist Relationship Specialty Start Date End Date Feliciano Delgado MD [address] [place] [address] PCP - General Internal Medicine 10/17/12 documented as of this encounter
--- OUTSIDE RECORDS SUMMARY | 2024-12-04 22:41 | XMS_ITS | Encounter Summary ---
Author Organization [facility] Address [address] [place] [address] Care Team Providers Care Geospatial Extractor Analysis Name Role Phone Feliciano Delgado MD Primary Care Provider [phone] Reason for Visit * Reason Onset Date Comments er follow up 01/12/2023 Encounter Details Date Type Department Care Team Description 01/12/2023 Telephone Adult Medicine - [place] [address] [place] [address] Feliciano Delgado MD [address] [place], [place] [phone] er follow up Social History Tobacco Use Types Packs/Day Years [...] encounter Miscellaneous Notes * Telephone Encounter - Lilly Cadet - 01/12/2023 9:19 AM EST ER follow-up appointment booked YES 02/22/23 If ER or UC follow up, can be booked with APC or MD. If hospital admission follow up MUST be booked with a physician Appointment time: 830AM Provider visit is scheduled with: Kusum Cole [facility] patient was treated at: [facility] Date of visit: 01/09/23 Was this only an ER/UC visit or was the patient admitted to the hospital? ER visit onlyER visit only If patient was admitted what was the date of discharge? Reason/diagnosis for visit or stay: pain and cough Was visit or stay related to an injury? NO If yes, what was the date of injury (DOI)? If yes, was the injury due to N/A Tests performed: Lab: YES X-ray: YES EKG: NO Other tests. If yes, what?; documented in this encounter Plan of Treatment Not on file documented as of this encounter Visit Diagnoses Not on filedocumented in this encounter Care Teams Geospatial Extractor Analysis Relationship Specialty Start Date End Date Feliciano Delgado MD [address] [place] [address] PCP - General Internal Medicine 10/17/12 documented as of this encounter
--- OUTSIDE RECORDS SUMMARY | 2024-12-04 22:41 | XMS_ITS | Encounter Summary ---
Author Organization [facility] Address [address] [place] [address] Care Team Providers Care Engine House Helper Name Role Phone Feliciano Delgado MD Primary Care Provider [phone] Reason for Visit * Reason Onset Date Comments Orders Call 03/29/2018 Encounter Details Date Type Department Care Team Description 03/29/2018 Telephone Adult Medicine - [address] [address] Stuart Guillen PA Orders Call Social History Tobacco Use Types Packs/Day Years [...] encounter Miscellaneous Notes * Telephone Encounter - Stuart Guillen PA-C - 03/29/2018 3:23 PM EST signed * Telephone Encounter - Wali Subramanian M.A. - 03/29/2018 2:39 PM EST Patient did not complete bone density. Please place new order since other one . Thank you. documented in this encounter Plan of Treatment Not on file documented as of this encounter Visit Diagnoses Diagnosis Marfan syndrome- Primary Marfan's syndrome documented in this encounter Care Teams Engine House Helper Relationship Specialty Start Date End Date Feliciano Delgado MD [address] [place] [phone] PCP - General Internal Medicine 10/17/12 documented as of this encounter
--- OUTSIDE RECORDS SUMMARY | 2024-12-04 22:41 | XMS_ITS | Encounter Summary ---
Author Organization [facility] Address [address] [place] [address] Care Team Providers Care Motor Man Name Role Phone Feliciano Delgado MD Primary Care Provider [phone] Encounter Details Date Type Department Care Team Description 01/25/2023 Orders Only Medical Records [address] [place] [address] [facility] Social History Tobacco Use Types Packs/Day Years [...] on file documented as of this encounter Procedures Procedure Name Priority Date/Time Associated Diagnosis Comments OUTSIDE PLAIN FILM Routine 01/09/2023 documented in this encounter Results * OUTSIDE PLAIN FILM (01/09/2023) [facility] RADIOLOGY documented in this encounter Visit Diagnoses Not on filedocumented in this encounter Care Teams Motor Man Relationship Specialty Start Date End Date Feliciano Delgado MD [address] [place], [place] [phone] PCP - General Internal Medicine 10/17/12 documented as of this encounter
--- OUTSIDE RECORDS SUMMARY | 2024-12-04 22:42 | XMS_ITS | Encounter Summary ---
Author Organization [facility] Address [address] [place] [address] Care Team Providers Care Csr Technician Name Role Phone Anrde Guerrero MD Primary Care Provider [phone] Tiffany Spangler DO Primary Care Provider [facility] Feliciano Corona MD Primary Care Provider [phone] Encounter Details Date Type Department Care Team Description 02/01/2011 Transfer Records Medical Records [address] [place] [id number] Abstract, Provider Social History Tobacco Use Types Packs/Day Years Used Date Smoking Tobacco: Every Day Cigarettes 0.5 Smokeless Tobacco: Never Comments:smokes < 1/2 PPD Alcohol Use Standard Drinks/Week Comments Yes 0 (1 standard drink = 0.6 oz pur e alcohol) alcohol abuse Sex Assigned at Date Recorded Not on file Job Start Date Occupation Industry Not on file Not on file Not on file documented as of this encounter Plan of Treatment Not on file documented as of this encounter Visit Diagnoses Not on filedocumented in this encounter Care Teams Csr Technician Relationship Specialty Start Date End Date Andre Guerrero MD [address] [place] [address] PCP - General 12/09/09 02/23/11 Tiffany Spangler DO [address] [place], [place] PCP - General Internal Medicine 02/24/11 10/16/12 Feliciano Delgado MD [address] [place], [place] PCP - General Internal Medicine 10/17/12 documented as of this encounter
--- OUTSIDE RECORDS SUMMARY | 2024-12-04 22:42 | XMS_ITS | Encounter Summary ---
Author Organization [facility] Address [address] [place] [address] Care Team Providers Care Synthetic Plasterer Name Role Phone Tiffany Spangler DO Primary Care Provider Feliciano Reyna MD Primary Care Provider [phone] Encounter Details Date Type Department Care Team Description 01/30/2012 Transfer Records Medical Records [address] [place] [id number] Abstract, Provider Social History Tobacco Use Types [...] on filedocumented in this encounter Care Teams Synthetic Plasterer Relationship Specialty Start Date End Date Tiffany Spangler DO PCP - General Internal Medicine 02/24/11 10/16/12 Feliciano Delgado MD [address] [place] [address] PCP - General Internal Medicine 10/17/12 documented as of this encounter
--- OUTSIDE RECORDS SUMMARY | 2024-12-04 22:42 | XMS_ITS | Encounter Summary ---
Author Organization [facility] Address [address] [place] [address] Care Team Providers Care Reforestation Worker Name Role Phone Tiffany Spangler DO Primary Care Provider Feliciano Reyna MD Primary Care Provider [phone] Reason for Visit * Reason Onset Date Comments Information Needed 02/03/2012 Encounter Details Date Type Department Care Team Description 02/03/2012 Telephone Adult Medicine - [address] [address] Tiffany Spangler DO Information Needed Social History Tobacco Use Types Packs/Day Years [...] encounter Miscellaneous Notes * Telephone Encounter - Rafael Kaplan L.P.N. - 02/06/2012 10:46 AM EST msg left for pt to call back * Telephone Encounter - Amie Bustamante PA-C - 02/06/2012 9:01 AM EST Pending the tattooist is licensed and uses sterile technique and sterile equiptment I wouldn't forsee an issue with this * Telephone Encounter - Rafael CoreyPJordynNJordny - 02/03/2012 3:45 PM EST msg left to call back * Telephone Encounter - Deisi Haynes - 02/03/2012 3:37 PM EST Due to the patients recent medical history she would like to know if it is okay if she gets a tattoo. documented in this encounter Plan of Treatment Not on file documented as of this encounter Visit Diagnoses Not on filedocumented in this encounter Care Teams Reforestation Worker Relationship Specialty Start Date End Date Tiffany Spangler DO PCP - General Internal Medicine 02/24/11 10/16/12 Feliciano Delgado MD [address] [place] [address] PCP - General Internal Medicine 10/17/12 documented as of this encounter
--- OUTSIDE RECORDS SUMMARY | 2024-12-04 22:42 | XMS_ITS | Encounter Summary ---
Author Organization [facility] Address [address] [place] [address] Care Team Providers Care Airline Flight Attendant Name Role Phone Tiffany Spangler DO Primary Care Provider Feliciano Reyna MD Primary Care Provider [phone] Encounter Details Date Type Department Care Team Description 01/20/2012 Controlled Substance Contract with Plan Medical Records [address] [place] [id number] Abstract, Provider Social History Tobacco Use Types [...] on filedocumented in this encounter Care Teams Airline Flight Attendant Relationship Specialty Start Date End Date Tiffany Spangler DO PCP - General Internal Medicine 02/24/11 10/16/12 Feliciano Delgado MD [address] [place] [address] PCP - General Internal Medicine 10/17/12 documented as of this encounter
== END 2024-12-04 22:44 | disposition home or self-care (01) ==
PROVIDERS: Physician Assistant; Emergency Provider Student in an Organized Health Care Education/Training Program; PCP Registered Nurse
DX: S13.4XXA Sprain of ligaments of cervical spine, initial encounter (principal); M25.561 Pain in right knee; V43.52XA Car driver injured in collision with other type car in traffic accident, initial encounter; Y93.89 Activity, other specified; Y92.488 Other paved roadways as the place of occurrence of the external cause; Y99.8 Other external cause status
CPT/HCPCS: 36415; 70450; 71260; 72125; 73130; 73564; 74177; 80053; 80307; 81003; 81025; 83735; 84484; 84702; 85025; 93005; 96374; 96375; 99284; 99285; J2270; J2405; Q9967

== ENCOUNTER → 2024-12-04 18:15 | Outpatient (BNV) | payer OTHER, SELFPAY | PROVIDERS: Emergency Provider Student in an Organized Health Care Education/Training Program; PCP Registered Nurse; Visit Provider Internal Medicine Cardiovascular Disease | DX: I49.9 Cardiac arrhythmia, unspecified (principal) | CPT/HCPCS: 93010 ==

== ENCOUNTER → 2024-12-04 18:25 | Outpatient (BNV) | payer OTHER, SELFPAY | PROVIDERS: Emergency Provider Student in an Organized Health Care Education/Training Program; PCP Registered Nurse; Visit Provider Radiology Diagnostic Radiology | DX: Z04.3 Encounter for examination and observation following other accident (principal) | CPT/HCPCS: 70450; 71260; 72125; 73130; 73564; 74177 ==

== ENCOUNTER 2025-01-20 09:17 | Outpatient (AMB) | payer OTHER, SELFPAY ==
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
[2025-01-20 09:24] VITALS: BMI 20.7
== END 2025-01-20 09:42 | disposition home or self-care (01) ==
LOC: HO.HPHYS 09:17
PROVIDERS: PCP Pediatrics; Visit Provider Physician Assistant
DX: M54.16 Radiculopathy, lumbar region (principal); M47.816 Spondylosis without myelopathy or radiculopathy, lumbar region
CPT/HCPCS: 99204